=== PATIENT | male | born 1950 | race Caucasian/White ===

== ENCOUNTER → 2018-09-07 | Outpatient (CLI) | payer OTHER ==
[2018-09-07 14:53] LABS: African American GFR (CKD) >90 (>60 ml/min/1.73 sqM); Blood Urea Nitrogen 7 mg/dL (9-20)
--- NOTE | 2018-09-07 22:20 | CT ---
EXAMINATION TYPE: CT chest w con DATE OF EXAM: 09/07/2018 COMPARISON: 06/26/2014 HISTORY: 67-year-old male left lung mass TECHNIQUE: Contiguous axial scanning of the chest after the administration of 100 mL of Isovue 300. Coronal/sagittal reconstructions performed. CT DLP: 271 mGycm. Automatic exposure control utilized for a dose reduction. FINDINGS: Heart normal size without pericardial effusion. The aorta is normal caliber with conventional arch vessel branching anatomy. No axillary or mediastinal lymphadenopathy. Couple prominent but nonenlarged left hilar lymph nodes measure 9 mm and 8 mm, axial image 24 and 28. New large left upper lobe, lingular mass measuring 5.9 x 5.2 cm extending to just above the pleural m argin. There is partial encasement of the superior segment lingular bronchus. No consolidation or pleural effusion. Moderate size hiatal hernia. Otherwise, visualized upper abdomen shows no gross abnormality. Bones: Mild endplate spondylosis mid to lower thoracic spine. No osseous destructive process. IMPRESSION: 1. As compared to 06/26/2014, there is a new 5.9 x 5.2 cm lingular mass with partial encasement of the superior segment lingular bronchus and extension to just abut the pleural surface. 2. A couple prominent but nonenlarged left hilar lymph nodes measure 9 mm and 8 mm. No mediastinal ly mphadenopathy. 3. Stable moderate-sized hiatal hernia.
== END | disposition home or self-care (01) ==
LOC: RADCTMAIN 14:02
PROVIDERS: ATTEND Physician Assistant Medical
DX: R91.8 Other nonspecific abnormal finding of lung field (principal); K44.9 Diaphragmatic hernia without obstruction or gangrene
CPT/HCPCS: 36415; 71260; 82565; 84520

== ENCOUNTER → 2018-10-23 | Outpatient (CLI) | payer OTHER ==
--- NOTE | 2018-10-25 16:45 | PE ---
Nuclear medicine PET/CT HISTORY: Other nonspecific abnormal finding lung field, initial, lung mass Patient received 9 mCi F-18 FDG intravenously in delayed scanning was performed from the skull base t o the mid thighs. Localization and attenuation correction CT scan was performed. Correlation to prior chest CT dated 09/07/2018 Neck and chest: There is no cervical or supraclavicular adenopathy evident. No mediastinal, axillary, hilar uptake. There is a mass present as described on chest CT in the left upper lobe measuring appr oximate 6.6 cm which extends from the pleural surface laterally towards the left hilum and shows hype rmetabolic uptake, SUV is 8.6. Spiculated margins are present. No pleural or pericardial effusion. There is a large hiatal hernia with partial intrathoracic stomach present. ABDOMEN: No evident adrenal mass or lung mass. No suspicious hypermetabolic uptake. No retroperitonea l adenopathy. Osseous structures show no suspicious hypermetabolic uptake. IMPRESSION: Bronchogenic carcinoma.
== END | disposition home or self-care (01) ==
LOC: RADPETMAIN 12:31
PROVIDERS: ATTEND Internal Medicine Critical Care Medicine
DX: C34.90 Malignant neoplasm of unspecified part of unspecified bronchus or lung (principal)
CPT/HCPCS: 78815; A9552

== ENCOUNTER 2018-10-28 10:45 | Day surgery (SDC) | payer OTHER ==
[2018-10-26 15:50] VITALS: BMI 19.8
[~2018-10-28 10:45] MED LIST: ALBUTEROL NEB (CONC) 2.5 MG/0.5 ML INHALATION ONE; ATROPINE SULFATE 0.4 MG/ML 1 ML VIAL IM ONE; LACTATED RINGERS 1,000 ML IV SCH; LIDOCAINE 2% (PF) 20 MG/ML 5 ML VIAL INHALATION ONE; LIDOCAINE VISCOUS 300 MG/15 ML CUP MUCOUS MEM ONE; SODIUM CHLORIDE 0.9% 1,000 ML IV SCH
[2018-10-28 11:16] VITALS: TEMP 97.6
[2018-10-28] MEDS ORDERED: LIDOCAINE 1% 20 ML VIAL (10MG/ML) FOR IV START INTRADERMA ONE (11:25)
[2018-10-28] MEDS ORDERED: KETAMINE 10 MG/ML 20 ML VIAL ONE (12:17)
[2018-10-28] MEDS ORDERED: LIDOCAINE 1% INJ 10MG/ML (20 ML MDV) ONE (12:17)
[2018-10-28] MEDS ORDERED: PROPOFOL 10 MG/ML 20 ML VIAL IV ONE (12:17)
[2018-10-28] MEDS ORDERED: LIDOCAINE 2% INJ 20 MG/ML INTRATRACH ONE (12:35)
--- NOTE | 2018-10-28 13:44 | FL ---
EXAMINATION TYPE: FL bronchoscopy DATE OF EXAM: 10/28/2018 COMPARISON: NONE HISTORY: Left lung mass Fluoroscopy support supplied to the referring clinician. See dictated report from Jeannette cuba secumer gonzales fluoroscopy time, single intraoperative image documents the procedure
[2018-10-28] MEDS ORDERED: ALBUTEROL NEBULIZED 2.5 MG/3 ML INHALATION STA (14:05)
[2018-10-28 14:08] VITALS: BP 115/69; RESP 18
[2018-10-28 14:14] VITALS: PULSE 80
--- NOTE | 2018-10-28 23:49 | PCN ---
PROCEDURE NOTE OPERATORS: 1. Carlitos Basurto MD. 2. Dr. Gan. PREOPERATIVE DIAGNOSIS: Lung cancer. POSTOPERATIVE DIAGNOSIS: Lung cancer. PROCEDURE: Bronchial airway examination, therapeutic lavage, BAL, brushes in left upper lobe. PROCEDURE DESCRIPTION: PANAMA HAT SMEARER provided general anesthesia, unconscious sedation. There was informed consent. There was universal timeout. The patient's procedure took place in room #1. Fluoroscopy was used for guidance and for localization. After the patient was adequately sedated and being fully monitored, the bronchoscope was inserted through the right nostril. It passed through the right nasopharynx into the oropharynx and then to the hypopharynx. The hypopharyngeal structures appeared relatively normal, including anterior commissure, true cords, false cords, arytenoids, piriform sinuses, right and left valleculae and epiglottis. After topicalization, the bronchoscope was pushed through the glottic opening into the trachea. The trachea appeared normal. We went right down to the tracheal tong, which appeared normal. We went down to the left side to evaluate the left side. There was no distinct endobronchial tumor or mass, but the mucosa, particularly in the lingular segment of the left upper lobe, appeared abnormal. We did brushes in this area. We also washed this area. Because of bleeding and oozing, we never did do biopsies. The patient tolerated the procedure well. We made sure the patient stopped bleeding before the bronchoscope was withdrawn. There were no immediate complications. No x-rays necessary. We believe we had pretty good localization in the lingula of the left upper lobe. I will talk to the patient's family. MMODL / IJN: [id number] /
== END 2018-10-28 14:58 | disposition home or self-care (01) ==
LOC: ORWHC2ENDO 10:45 → EEVIPCON 12:00 → ORWHC2ENDO 14:58
PROVIDERS: ATTEND Internal Medicine Critical Care Medicine
DX: R91.8 Other nonspecific abnormal finding of lung field (principal); J44.9 Chronic obstructive pulmonary disease, unspecified; B18.2 Chronic viral hepatitis C; E78.5 Hyperlipidemia, unspecified; K21.9 Gastro-esophageal reflux disease without esophagitis; F43.10 Post-traumatic stress disorder, unspecified; R56.9 Unspecified convulsions; F39 Unspecified mood [affective] disorder; Z79.899 Other long term (current) drug therapy; F17.210 Nicotine dependence, cigarettes, uncomplicated
CPT/HCPCS: 94640 ×2; 88104; 88108; 88305; 31623; 31624; J2001 ×3; J0461; J2704

== ENCOUNTER 2018-11-03 10:15 | Day surgery (SDC) | payer OTHER ==
[2018-11-01 11:12] VITALS: BMI 19.4
[~2018-11-03 10:15] MED LIST changes: +DEXAMETHASONE SOD PHOSPHATE 10 MG/ML 1 ML VIAL IV ONE; +LIDOCAINE 1% 20 ML VIAL (10MG/ML) FOR IV START INTRADERMA PRN; +MIDAZOLAM 2 MG/2 ML VIAL IV PRN; +ONDANSETRON 4 MG/2 ML VIAL IVP ONE; +Pre Op ABX Message 1 EACH MISC MISCELLANE ONE; +fentaNYL (PF) 50 MCG/ML 2 ML AMP IV PRN
[2018-11-03] MEDS ORDERED: LIDOCAINE 1% INJ 10MG/ML (20 ML MDV) ONE (12:50)
[2018-11-03] MEDS ORDERED: fentaNYL (PF) 50 MCG/ML 2 ML AMP ONE (12:50)
[2018-11-03] MEDS ORDERED: SUCCINYLCHOLINE CHLORIDE 100 MG/5 ML SYR IV ONE (12:50)
[2018-11-03] MEDS ORDERED: MIDAZOLAM 2 MG/2 ML VIAL ONE (12:50)
[2018-11-03] MEDS ORDERED: PHENYLEPHRINE-0.9% NACL SYG 1 MG/10 ML SYRINGE ONE (12:50)
[2018-11-03] MEDS ORDERED: PROPOFOL 10 MG/ML 20 ML VIAL IV ONE (12:50)
--- NOTE | 2018-11-03 14:17 | CT ---
EXAMINATION TYPE: CT Chest wo con Veran Protocol DATE OF EXAM: 11/03/2018 COMPARISON: None HISTORY: 68-year-old male Lung mass-veran protocol TECHNIQUE: Contiguous axial scanning of the chest without IV contrast. Imaging in both inspiration an d expiration for navigational purposes. Coronal and sagittal reconstructions performed. CT DLP: 592.8 mGycm Automated exposure control for dose reduction was used. FINDINGS: Heart normal size without pericardial effusion. Aorta normal caliber convention arch vessel branching anatomy. Lingular mass with some faint punctate calcifications within measures up to 7.0 cm extending to the p leural surface. Some mild tree-in-bud opacities within the inferior lingula just adjacent could represent mild pneumo nitis. No pleural effusion. Moderate size hiatal hernia. Bones: Mild anterior endplate spondylosis. No rib erosions. Moderate degenerative disc disease midtho racic spine. IMPRESSION: LARGE 7.0 CM LEFT UPPER LOBE/LINGULAR MASS. SOME ADJACENT MILD TREE-IN-BUD OPACITIES INFERIOR LINGULA COULD REPRESENT A MILD PNEUMONITIS. MODERATE-SIZED HIATAL HERNIA. IMAGING FOR NAVIGATIONAL PURPOSES.
--- NOTE | 2018-11-03 14:25 | PCN ---
PROCEDURE NOTE PROCEDURE: Navigational bronchoscopy. PREOPERATIVE DIAGNOSIS: Mass, left upper lobe, rule out cancer. POSTOP DIAGNOSIS: Mass, left upper lobe, rule out cancer. SENIOR FINANCIAL REPORTING ANALYST: Dr. Basurto and Dr. Gan. PROCEDURE DESCRIPTION: Patient's procedure was done under general anesthesia in the operating room #5. The anesthesiologist was , the nurse screw down was Natalie Harrison CRNA. There was informed consent and universal timeout. I did speak to the family members before the procedure. After patient was adequately sedated and under general anesthesia, the bronchoscope was inserted through the bronchoscope adapter connected to the endotracheal tube. Under the electromagnetic guidance, there were multiple procedures performed including brushes, multiple transbronchial biopsies, needle biopsies and washes of the lesion in the left upper lobe. We had good localization. We had pathology in the room. looked at the sample and thought that we did have a diagnosis. The patient tolerated the procedure well. There was no significant bleeding. There was no dominant mass in the airways. The patient will be recovered. No additional recommendations are made. I will make sure I speak to the family members after the procedure. MMODL / IJN: [id number] / MTDD
[2018-11-03 14:27] VITALS: TEMP 97
[2018-11-03 14:53] VITALS: RESP 18
--- NOTE | 2018-11-03 15:04 | XR ---
EXAMINATION TYPE: XR chest 1V portable DATE OF EXAM: 11/03/2018 COMPARISON: 06/30/2014 HISTORY: Post bronchial navigation TECHNIQUE: Single frontal view of the chest is obtained. FINDINGS: Large mass in the left upper lobe. No sizable pneumothorax. Suggestion of a hiatal hernia. Underlying COPD suspected. Diffuse osteopenia. No pleural effusion. Heart size stable. IMPRESSION: Large left upper lobe mass with no evidence of pneumothorax
[2018-11-03 15:41] VITALS: BP 125/79
[2018-11-03 15:54] VITALS: PULSE 81
== END 2018-11-03 16:13 | disposition home or self-care (01) ==
LOC: ORWHC2ENDO 10:15
PROVIDERS: ATTEND Internal Medicine Critical Care Medicine
DX: C34.12 Malignant neoplasm of upper lobe, left bronchus or lung (principal); J44.9 Chronic obstructive pulmonary disease, unspecified; B18.2 Chronic viral hepatitis C; E78.5 Hyperlipidemia, unspecified; A60.00 Herpesviral infection of urogenital system, unspecified; K21.9 Gastro-esophageal reflux disease without esophagitis; F43.10 Post-traumatic stress disorder, unspecified; Z82.49 Family history of ischemic heart disease and other diseases of the circulatory system; F17.210 Nicotine dependence, cigarettes, uncomplicated; Z79.1 Long term (current) use of non-steroidal anti-inflammatories (NSAID); Z79.899 Other long term (current) drug therapy
CPT/HCPCS: 88104; 88108; 88305; 88173; 88342; 88341; 71045; 71250; 31628; 31627; J2250; J1100; J2405; J2001; J3010; J2370; J0330; J2704; 31623; 31624; 31633

== ENCOUNTER → 2018-11-23 | Outpatient (CLI) | payer OTHER | END | disposition home or self-care (01) | LOC: CPPFTMAIN 10:17 | PROVIDERS: ATTEND Internal Medicine Critical Care Medicine | DX: J44.9 Chronic obstructive pulmonary disease, unspecified (principal); I99.8 Other disorder of circulatory system | CPT/HCPCS: 94060; 94726; 94729 ==

== ENCOUNTER → 2018-11-29 | Outpatient (CLI) | payer OTHER ==
[2018-11-29 07:33] LABS: African American GFR (CKD) >90 (>60 ml/min/1.73 sqM); Blood Urea Nitrogen 5 mg/dL (9-20)
--- NOTE | 2018-11-29 08:27 | CT ---
EXAMINATION TYPE: CT brain wo/w con DATE OF EXAM: 11/29/2018 COMPARISON: None INDICATION: Malig. Loi Upper Lobe, Lt Bronchus DLP: 2216.8 mGycm, Automated exposure control for dose reduction was used. CONTRAST: None CT of the brain is performed utilizing 3 mm thick sections through the posterior fossa and 3 mm thick sections through the remaining calvarium. Study is performed within 24 hours of arrival to the hosp [facility]. No abnormal hyperdensity is present to suggest an acute intracranial hemorrhage. No mass lesion is evident. No acute infarcts are evident. There is some mild periventricular white matter hypodensity most likel y on the basis of chronic white matter ischemic changes. Ventricles and sulci are appropriate for the patient age. Paranasal sinuses and mastoid air cells within the [id number] are clear. No abnormal enhancement is evident following contrast administration calvarium appears normal. No siomara picious lytic or sclerotic lesions are evident. IMPRESSIONS: 1. Mild chronic appearing periventricular white matter ischemic changes. 2. No suspicious changes for metastatic disease.
== END | disposition home or self-care (01) ==
LOC: RADCTMAIN 06:35
PROVIDERS: ATTEND Radiology Radiation Oncology
DX: I67.82 Cerebral ischemia (principal); C34.12 Malignant neoplasm of upper lobe, left bronchus or lung
CPT/HCPCS: 82565; 84520; 70470; 36415; Q9967

== ENCOUNTER → 2019-03-07 | Outpatient (CLI) | payer OTHER ==
[2019-03-07 11:10] LABS: African American GFR (CKD) >90 (>60 ml/min/1.73 sqM); Blood Urea Nitrogen 15 mg/dL (9-20); Non-African American GFR(CKD) >90 (>60 ml/min/1.73 sqM)
--- NOTE | 2019-03-07 11:40 | CT ---
EXAMINATION TYPE: CT chest w con DATE OF EXAM: 03/07/2019 COMPARISON: Chest CT September 07, 2018 and PET/CT October 23, 2018. HISTORY: Lung CA progress study. History of chemotherapy and radiation treatment. CT DLP: 190.4 mGycm. Automated Exposure Control for Dose Reduction was Utilized. TECHNIQUE: CT scan of the thorax is performed following with IV Contrast, patient injected with 100 mL of Isovue 300. FINDINGS: LUNGS: Redemonstration of inferior left upper lobe mass or neoplasm measuring 5.3 x 4.4 cm axial imag e 26 not significantly changed from last 2 studies. Some linear scarring anterior inferior to this is now present. No new nodules or masses. No pleural effusion or pneumothorax. MEDIASTINUM: There are no new greater than 1 cm hilar or mediastinal lymph nodes. No cardiomegaly o r pericardial effusion is seen. OTHER: Moderate size hiatal hernia is redemonstrated. Poorly distended stomach and hiatal hernia radha lar to prior makes evaluation for focal suboptimal cannot exclude wall thickening. IMPRESSION: 1. Stable left sided mass or neoplasm. No new nodules or adenopathy. Overall stable findings.
== END ==
LOC: RADCTMAIN 10:31
PROVIDERS: ATTEND Internal Medicine Hematology & Oncology
DX: C34.12 Malignant neoplasm of upper lobe, left bronchus or lung (principal)
CPT/HCPCS: 82565; 84520; 71260; 36415; Q9967

== ENCOUNTER → 2019-12-12 | Outpatient (CLI) | payer OTHER ==
[2019-12-12 14:06] LABS: African American GFR (CKD) >90 (>60 ml/min/1.73 sqM); Blood Urea Nitrogen 12 mg/dL (9-20); Non-African American GFR(CKD) >90 (>60 ml/min/1.73 sqM)
--- NOTE | 2019-12-12 15:16 | CT ---
EXAMINATION TYPE: CT ChestAbdPelvis w con DATE OF EXAM: 12/12/2019 COMPARISON: 03/07/2019 HISTORY: Lung CA CT DLP: 543.5 mGycm CONTRAST: CT scan of the chest, abdomen and pelvis is performed with Oral Contrast and with IV Contrast, patien t injected with 100 mL of Isovue 300. CT Chest: LUNGS: There is a cavitary mass left upper lobe which measures 4.7 x 3.6 cm and is smaller in size wh en compared to the prior study entering 5.3 x 4.4 cm area of cavitation is new in the interval. No ad ditional pulmonary nodules or masses are identified. MEDIASTINUM: Thoracic aorta is of normal caliber. The heart is not enlarged. No evidence for media stinal mass or adenopathy. Moderate size fixed hiatal hernia noted. HILAR STRUCTURES: No evidence for mass. No hilar adenopathy is appreciated. OTHER: No significant abnormality. CONTRAST CT ABDOMEN AND PELVIS FINDINGS: LIVER/GB: No calcified gallstones. Hypoattenuating anterior segment right hepatic lobe lesion measu ring 7.4 mm unchanged from prior study. No additional hepatic lesions are seen. Biliary tree is of no rmal caliber. PANCREAS: No inflammation. No distinct mass. SPLEEN: No splenic enlargement. No lesion seen. ADRENALS: No nodule. No thickening. KIDNEYS/BLADDER: No hydronephrosis. No nephrolithiasis. No distinct renal mass. BOWEL: Normal appendix. Normal bowel caliber. No inflammation. GENITAL ORGANS: No gross abnormality. LYMPH NODES: No greater than 1cm abdominal or pelvic lymph nodes are appreciated. AORTA: No significant abnormality. OSSEOUS STRUCTURES: No significant abnormality is seen. OTHER: Note is made of a large right-sided hydrocele. IMPRESSION: 1. Left upper lobe mass persists although is smaller in size. There is new cavitation within the mass noted. No new masses identified. 2. Stable probable hepatic cysts.
== END | disposition home or self-care (01) ==
LOC: RADCTMAIN 13:09
PROVIDERS: ATTEND Internal Medicine Hematology & Oncology
DX: C34.12 Malignant neoplasm of upper lobe, left bronchus or lung (principal)
CPT/HCPCS: 82565; 84520; 71260; 74177; 36415; Q9967

== ENCOUNTER → 2020-03-14 | Outpatient (CLI) | payer OTHER ==
[2020-03-14 11:15] LABS: African American GFR (CKD) >90 (>60 ml/min/1.73 sqM); Blood Urea Nitrogen 16 mg/dL (9-20); Non-African American GFR(CKD) 86 (>60 ml/min/1.73 sqM)
--- NOTE | 2020-03-14 20:39 | CT ---
EXAMINATION TYPE: CT ChestAbdPelvis w con DATE OF EXAM: 03/14/2020 INDICATION: Lung cancer COMPARISON: 12/12/2019 CT DLP: 654.70 mGycm CONTRAST: Performed with Oral Contrast and with IV Contrast, patient injected with 100 ml mL of Isovue 300. TECHNIQUE: Axial images at 5 mm thick sections. Reconstructed images in the coronal plane. Delayed images through the kidneys. FINDINGS: CT CHEST: Portion of the thyroid visualized is normal. There is a cavitary lesion within the mid lingula measuring 3.5 x 3.5 cm. Previous measurement 4.7 x 3.6 cm. No enlarged mediastinal or hilar adenopathy is evident. The ascending aorta diameter at the level of the main pulmonary artery is 3.4 cm. The main pulmonary artery diameter at the bifurcation is 2.8 cm. There is a large hiatal hernia present. CT ABDOMEN: Liver: There is a 0.7 cm hypodensity within the superior right lobe liver may be a small cyst present previously. Spleen: Normal Pancreas: Normal Adrenal glands: The adrenal glands are normal. Gallbladder: Normal Kidneys: No masses are evident. No hydronephrosis is present. No cysts are present. Delayed images were obtained through the kidneys, which remain unremarkable. Aorta: Vascular calcification is within the aorta. Inferior vena cava: Normal. CT PELVIS: Loops of bowel within the abdomen and pelvis are normal. There are loops of bowel which are incom pletely distended or lack oral contrast limiting their evaluation. Oral contrast gets to the ascendin g colon. Appendix: Normal as visualized. Urinary bladder: Normal. Genitourinary structures: Prostate is unremarkable. Large right hydrocele appears to be present. Osseous structures: No suspicious lytic or sclerotic lesions. IMPRESSIONS: 1. Slight diminished size of the cavitary lesion within the lingula. 2. Large hiatal hernia. 3. Right-sided hydrocele
== END | disposition home or self-care (01) ==
LOC: RADCTMAIN 09:52
PROVIDERS: ATTEND Internal Medicine Hematology & Oncology
DX: Z03.89 Encounter for observation for other suspected diseases and conditions ruled out (principal); C34.12 Malignant neoplasm of upper lobe, left bronchus or lung; K44.9 Diaphragmatic hernia without obstruction or gangrene; N43.3 Hydrocele, unspecified; R91.1 Solitary pulmonary nodule
CPT/HCPCS: 82565; 84520; 71260; 74177; 36415; Q9967

== ENCOUNTER → 2020-07-13 | Outpatient (CLI) | payer OTHER ==
[2020-07-13 12:50] LABS: African American GFR (CKD) >90 (>60 ml/min/1.73 sqM); Blood Urea Nitrogen 16 mg/dL (9-20); Non-African American GFR(CKD) >90 (>60 ml/min/1.73 sqM)
--- NOTE | 2020-07-13 13:59 | CT ---
EXAMINATION TYPE: CT chest w con DATE OF EXAM: 07/13/2020 COMPARISON: 03/14/2020 HISTORY: Lung Cancer CT DLP: 301 mGycm Automated exposure control for dose reduction was used. CONTRAST: Performed with IV Contrast, patient injected with 100 ml mL of Isovue 300. Images obtained from the thoracic inlet to the diaphragm with IV contrast. There is a 4 x 3 cm cavitating mass in the left upper lobe extending from the chest wall to the left pulmonary hilum. Central cavity measures 1.8 cm. There is minimal adjacent spiculation the other lung love are clear. There is moderate size hiatal hernia. There is no pleural effusion. Heart size is normal. There is no sign of mediastinal adenopathy. Thoracic aorta is intact. There is no aneurysm or dissection. Thoracic spine is intact. There is no compression fracture. The ribs are intact. Shoulder joints are intact. There is no adrenal mass. Upper abdominal soft tissu es visualized appear intact. IMPRESSION: Cavitating mass in the left upper lobe appears unchanged compared to old CT scan and consistent with necrotic tumor. No increasing pulmonary density compared to old exam.
== END | disposition home or self-care (01) ==
LOC: RADCTMAIN 11:44
PROVIDERS: ATTEND Internal Medicine Hematology & Oncology
DX: C34.90 Malignant neoplasm of unspecified part of unspecified bronchus or lung (principal); R91.8 Other nonspecific abnormal finding of lung field
CPT/HCPCS: 82565; 84520; 71260; 36415; Q9967

== ENCOUNTER → 2020-11-29 | Outpatient (CLI) | payer OTHER ==
[2020-11-29 17:21] LABS: African American GFR (CKD) >90 (>60 ml/min/1.73 sqM); Blood Urea Nitrogen 15 mg/dL (9-20); Non-African American GFR(CKD) >90 (>60 ml/min/1.73 sqM)
--- NOTE | 2020-11-30 07:38 | CT ---
EXAMINATION TYPE: CT chest w con DATE OF EXAM: 11/29/2020 COMPARISON: Chest CT July 13, [address] PET CT October 23, 2018 HISTORY: Lung ca left-sided originally diagnosed October 2018 CT DLP: 166.50 mGycm. Automated Exposure Control for Dose Reduction was Utilized. TECHNIQUE: CT scan of the thorax is performed following with IV Contrast, patient injected with 125 mL of Isovue 300. FINDINGS: LUNGS: Persistent cavitary lesion left mid lung extending from the superior hilum measures approximat yumi 4.6 x 2.7 cm axial image 24 not significantly enlarged from last 2 studies but shows some new or more prominent internal fluid with diminished internal air. There is continued slight left superior hilar retraction. Stable mild left basilar linear scarring. No new nodules or masses. There is no ple ural effusion or pneumothorax seen. MEDIASTINUM: There are no new greater than 1 cm hilar or mediastinal lymph nodes. No cardiomegaly o r pericardial effusion is seen. Moderate to large size hiatal hernia redemonstrated with new interna l debris. Mild coronary artery calcification redemonstrated. OTHER: Excretion in the kidneys is incidentally seen. IMPRESSION: Stable size of known left superhilar mass or cavitary neoplasm. No new nodules or adenopa thy noted.
== END | disposition home or self-care (01) ==
LOC: RADCTMAIN 16:50
PROVIDERS: ATTEND Internal Medicine Hematology & Oncology
DX: C34.92 Malignant neoplasm of unspecified part of left bronchus or lung (principal); J98.4 Other disorders of lung
CPT/HCPCS: 82565; 84520; 71260; 36415; Q9967

== ENCOUNTER → 2021-06-17 | Outpatient (CLI) | payer OTHER ==
[2021-06-17 12:34] LABS: African American GFR (CKD) >90 (>60 ml/min/1.73 sqM); Blood Urea Nitrogen 11 mg/dL (9-20); Non-African American GFR(CKD) >90 (>60 ml/min/1.73 sqM)
--- NOTE | 2021-06-17 15:07 | CT ---
EXAMINATION TYPE: CT ChestAbdPelvis w con DATE OF EXAM: 06/17/2021 COMPARISON: CT dated 11/29/2020 and 03/14/2020 HISTORY: Lung cancer. CT DLP: 1066 mGycm Automated exposure control for dose reduction was used. CONTRAST: CT scan of the chest, abdomen and pelvis is performed with Oral Contrast and with IV Contrast, patien t injected with 100 mL of Isovue M300. FINDINGS: LUNGS: Slightly more prominent left upper lobe central lesion inseparable from the left hilum measuri ng 3 x 5.2 cm compared to 2.7 x 4.6 cm previously. More solid component is appreciated with the previ ously seen cavitation is not appreciated today. Apparent obstruction of the lingular bronchus, apprec iated previously. Loss of volume of the left upper lobe with cardiomediastinal shift to the left side . No other definite new or progressive lung lesion. Patent trachea and main bronchi. No pleural effus ion. MEDIASTINUM: There are no greater than 1 cm hilar or mediastinal lymph nodes. No pericardial effusi on is seen. Unchanged heart and great mediastinal vessels. OTHER: Osteopenia. No gross aggressive bone lesion. LIVER/GB: Stable right hepatic lobe cyst, otherwise unremarkable liver and gallbladder. PANCREAS: No significant abnormality is seen. SPLEEN: No significant abnormality is seen. ADRENALS: Stable 7 mm right adrenal nodule. Unremarkable left adrenal. KIDNEYS: Unremarkable kidneys. Markedly distended urinary bladder. BOWEL: Hiatal hernia containing at least half of the stomach. Unremarkable remainder of the stomach and duodenum. Suboptimal assessment of the small and large bowel due to paucity of intra-abdominal fa t. No evidence of bowel obstruction. Fecal loading of the colon. A small colonic lesion cannot be exc luded by this CT scan. REPRODUCTIVE ORGANS: Prostatic concretion. LYMPH NODES: No greater than 1 cm abdominal or pelvic lymph nodes are appreciated. OSSEOUS STRUCTURES: Osteopenia. Marked degenerative changes at L5-S1 level. Grade 1 anterolisthesis o f L4 over L5. No gross aggressive bone lesion. OTHER: Scattered arterial atherosclerotic calcifications. No sizable ascites. Large right sided scrot al hydrocele. IMPRESSION: 1. Slightly larger known left upper lobe lesion which could be related to postradiation changes howev er progressive underlying residual lung cancer cannot be excluded. Further PET scan assessment can be considered. 2. Stable tiny right adrenal nodule. Otherwise no evidence of metastatic disease seen in the abdomen or the pelvis. Other incidental findings as detailed above.
== END | disposition home or self-care (01) ==
LOC: RADCTMAIN 11:22
PROVIDERS: ATTEND Internal Medicine Hematology & Oncology
DX: C34.12 Malignant neoplasm of upper lobe, left bronchus or lung (principal); E27.8 Other specified disorders of adrenal gland
CPT/HCPCS: 82565; 84520; 71260; 74177; 36415; Q9967

== ENCOUNTER 2021-07-30 18:23 | Inpatient (IN) | payer OTHER, MEDICARE ==
[2021-07-30] MEDS ORDERED: SODIUM CHLORIDE 0.9% 1,000 ML IV STA (20:17)
--- NOTE | 2021-07-30 20:32 | ED ---
Male Urogenital HPI - General Chief complaint: Urogenital Stated complaint: Urogenital Time Seen by Provider: 07/30/21 20:08 Source: patient, RN notes reviewed Mode of arrival: wheelchair Limitations: no limitations - History of Present Illness Initial comments: This is a pleasant 70-year-old male who presents to the emergency department. Patient does have some level of baseline dementia. Patient has history of lung cancer. Apparently for the past few weeks the patient has had worsening scrotal swelling and now has discomfort to the area. Patient states this is causing discomfort when he goes to walk. Patient states that he fell several times in the barn today. This was not witnessed. However patient's believes it is due to the scrotal swelling. Patient is complaining of bilateral knee pain as well. No chest pain or shortness of breath. Patient denies any head or neck injury although the patient is not a reliable historian. No blood thinners. No hematuria. No penile discharge. No skin rashes or lesions. Patient has been eating and drinking normally. No changes in bowel movements. No headache, no fever or chills, no changes in vision or hearing, no sore throat or difficulty with speech, no neck pain, no chest pain or shortness of breath, no abdominal pain, no nausea or vomiting, no changes in urination, no numbness or tingling MD Complaint: testicle swelling - Related Data Home Medications Medication Instructions Recorded Confirmed diphenhydrAMINE [Benadryl] 25 mg PO BID 06/30/14 07/30/21 Benztropine Mesylate [Cogentin] 1 mg PO DAILY 10/26/18 07/30/21 Finasteride [Proscar] 5 mg PO DAILY 10/26/18 07/30/21 Tamsulosin [Flomax] 0.4 mg PO DAILY 10/26/18 07/30/21 risperiDONE [RisperDAL] 1 mg PO BID 10/26/18 07/30/21 Diazepam [Valium] 5 mg PO BID 07/30/21 07/30/21 Fluticasone/Salmeterol [Advair 1 puff INHALATION RT-BID 07/30/21 07/30/21 250-50 Diskus] Omeprazole 40 mg PO DAILY 07/30/21 07/30/21 Allergies Allergy/AdvReac Type Severity Reaction Status Date / Time No Known Allergies Allergy Verified 07/30/21 23:36 Review of Systems ROS Statement: Those systems with pertinent positive or pertinent negative responses have been documented in the HPI. ROS Other: All systems not noted in ROS Statement are negative. 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 History of Any Multi-Drug Resistant Organisms: None Reported Past Surgical History: Adenoidectomy, Tonsillectomy Additional Past Surgical History / Comment(s): hepatitis C Past Anesthesia/Blood Transfusion Reactions: No Reported Reaction Past Psychological History: Schizophrenia Smoking Status: Never smoker Past Alcohol Use History: None Reported Past Drug Use History: Marijuana - Past Family History Father Family Medical History: Unable to Obtain Additional Family Medical History / Comment(s): PT WAS ADOPTED Mother Family Medical History: Unable to Obtain Additional Family Medical History / Comment(s): PT WAS ADOPTED, General Exam - General Exam Comments Initial Comments: Vital signs stable, patient afebrile. Patient does not appear to be ill or toxic. Limitations: no limitations General appearance: alert, in no apparent distress Head exam: Present: atraumatic, normocephalic, normal inspection Eye exam: Present: normal appearance, PERRL, EOMI. Absent: scleral icterus, conjunctival injection, periorbital swelling ENT exam: Present: normal exam, mucous membranes moist Neck exam: Present: normal inspection. Absent: tenderness, meningismus, lymphadenopathy Respiratory exam: Present: normal lung sounds bilaterally. Absent: respiratory distress, wheezes, rales, rhonchi, stridor Cardiovascular Exam: Present: regular rate, normal rhythm, normal heart sounds. Absent: systolic murmur, diastolic murmur, rubs, gallop, clicks GI/Abdominal exam: Present: soft, normal bowel sounds. Absent: distended, tenderness, guarding, rebound, rigid exam: Present: scrotal swelling, circumcision, other (There is no testicular tenderness. Patient does have enlarged scrotum with no evidence of overlying erythema or rash. Appears to be consistent with a large hydrocele. No evidence of inguinal hernia or abdominal wall hernia.). Absent: urethral discharge Extremities exam: Present: normal inspection, full ROM (Full range of motion bilateral knees with increased pain.), tenderness (Soft tissue tenderness to both knees. No evidence of bony point tenderness. No crepitus. No break in skin integrity. No erythema. No notable effusion.), normal capillary refill. Absent: pedal edema, joint swelling, calf tenderness Back exam: Present: normal inspection, full ROM. Absent: tenderness, CVA tenderness (R), CVA tenderness (L), muscle spasm, paraspinal tenderness, vertebral tenderness Neurological exam: Present: alert, oriented X3, CN II-XII intact Psychiatric exam: Present: normal affect, normal mood Skin exam: Present: warm, dry, intact, normal color. Absent: rash Course Vital Signs 07/30/21 07/30/21 07/30/21 20:00 21:04 23:00 Temperature 98.2 F Pulse Rate 88 81 81 Respiratory 18 16 16 Rate Blood Pressure 136/87 123/72 128/77 O2 Sat by Pulse 96 94 L 95 Oximetry - Reevaluation(s) Reevaluation #1: 07/30/21 21:50 Patient noted to have hyponatremia with a sodium of 125. Calcium also low at 8.2. Patient will require admission for electrolyte disturbance Reevaluation #2: 07/30/21 21:52 Patient no distress sitting in bed. Computed tomography scan did not show any acute findings. Medical Decision Making - Medical Decision Making This discussed in detail with the hospitalist physician, Dr. Sun, he insets admission of the patient. Admitted for hyponatremia. Chief Clerk Shelter Dr. Guzman - Lab Data Result diagrams: 07/31/21 06:44 07/31/21 13:03 Lab Results 07/30/21 07/30/21 07/30/21 Range/Units 20:30 20:30 20:30 WBC 12.1 H (3.8-10.6) k/uL RBC 3.82 L (4.30-5.90) m/uL Hgb 11.4 L (13.0-17.5) gm/dL Hct 34.8 L (39.0-53.0) % MCV 91.0 (80.0-100.0) fL MCH 29.9 (25.0-35.0) pg MCHC 32.8 (31.0-37.0) g/dL RDW 14.2 (11.5-15.5) % Plt Count 256 (150-450) k/uL MPV 6.2 Neutrophils % 81 % Lymphocytes % 8 % Monocytes % 8 % Eosinophils % 1 % Basophils % 0 % Neutrophils # 9.8 H (1.3-7.7) k/uL Lymphocytes # 1.0 (1.0-4.8) k/uL Monocytes # 1.0 (0-1.0) k/uL Eosinophils # 0.1 (0-0.7) k/uL Basophils # 0.0 (0-0.2) k/uL Sodium 125 L (137-145) mmol/L Potassium 3.8 (3.5-5.1) mmol/L Chloride 90 L (98-107) mmol/L Carbon Dioxide 26 (22-30) mmol/L Anion Gap 9 mmol/L BUN 8 L (9-20) mg/dL Creatinine 0.63 L (0.66-1.25) mg/dL Est GFR (CKD-EPI)AfAm >90 (>60 ml/min/1.73 sqM) Est GFR (CKD-EPI)NonAf >90 (>60 ml/min/1.73 sqM) Glucose 98 (74-99) mg/dL Osmolality (280-301) mosm/kg Calcium 8.2 L (8.4-10.2) mg/dL Magnesium 2.0 (1.6-2.3) mg/dL Total Bilirubin 0.7 (0.2-1.3) mg/dL AST 84 H (17-59) U/L ALT 32 (4-49) U/L Alkaline Phosphatase 57 (38-126) U/L Troponin I 0.015 (0.000-0.034) ng/mL Total Protein 6.7 (6.3-8.2) g/dL Albumin 3.5 (3.5-5.0) g/dL TSH 2.660 (0.465-4.680) mIU/L Urine Color Urine Appearance (Clear) Urine pH (5.0-8.0) Ur Specific [place] (1.001-1.035) Urine Protein (Negative) Urine Glucose (UA) (Negative) Urine Ketones (Negative) Urine Blood (Negative) Urine Nitrite (Negative) Urine Bilirubin (Negative) Urine Urobilinogen (<2.0) mg/dL Ur Leukocyte Esterase (Negative) Urine RBC (0-5) /hpf Urine WBC (0-5) /hpf Urine Mucus (None) /hpf Urine Osmolality (50-1400) mosm/kg Ur Random Creatinine mg/dL Ur Random Sodium (40-220) mmol/L 07/30/21 07/30/21 07/30/21 Range/Units 20:30 21:54 21:54 WBC (3.8-10.6) k/uL RBC (4.30-5.90) m/uL Hgb (13.0-17.5) gm/dL Hct (39.0-53.0) % MCV (80.0-100.0) fL MCH (25.0-35.0) pg MCHC (31.0-37.0) g/dL RDW (11.5-15.5) % Plt Count (150-450) k/uL MPV Neutrophils % % Lymphocytes % % Monocytes % % Eosinophils % % Basophils % % Neutrophils # (1.3-7.7) k/uL Lymphocytes # (1.0-4.8) k/uL Monocytes # (0-1.0) k/uL Eosinophils # (0-0.7) k/uL Basophils # (0-0.2) k/uL Sodium (137-145) mmol/L Potassium (3.5-5.1) mmol/L Chloride (98-107) mmol/L Carbon Dioxide (22-30) mmol/L Anion Gap mmol/L BUN (9-20) mg/dL Creatinine (0.66-1.25) mg/dL Est GFR (CKD-EPI)AfAm (>60 ml/min/1.73 sqM) Est GFR (CKD-EPI)NonAf (>60 ml/min/1.73 sqM) Glucose (74-99) mg/dL Osmolality 257 L (280-301) mosm/kg Calcium (8.4-10.2) mg/dL Magnesium (1.6-2.3) mg/dL Total Bilirubin (0.2-1.3) mg/dL AST (17-59) U/L ALT (4-49) U/L Alkaline Phosphatase (38-126) U/L Troponin I (0.000-0.034) ng/mL Total Protein (6.3-8.2) g/dL Albumin (3.5-5.0) g/dL TSH (0.465-4.680) mIU/L Urine Color Yellow Urine Appearance Clear (Clear) Urine pH 6.5 (5.0-8.0) Ur Specific [place] 1.016 (1.001-1.035) Urine Protein 1+ H (Negative) Urine Glucose (UA) Negative (Negative) Urine Ketones Negative (Negative) Urine Blood Trace H (Negative) Urine Nitrite Negative (Negative) Urine Bilirubin Negative (Negative) Urine Urobilinogen 2.0 (<2.0) mg/dL Ur Leukocyte Esterase Negative (Negative) Urine RBC 3 (0-5) /hpf Urine WBC 1 (0-5) /hpf Urine Mucus Rare H (None) /hpf Urine Osmolality 511 (50-1400) mosm/kg Ur Random Creatinine 94.3 mg/dL Ur Random Sodium (40-220) mmol/L 07/30/21 Range/Units 21:54 WBC (3.8-10.6) k/uL RBC (4.30-5.90) m/uL Hgb (13.0-17.5) gm/dL Hct (39.0-53.0) % MCV (80.0-100.0) fL MCH (25.0-35.0) pg MCHC (31.0-37.0) g/dL RDW (11.5-15.5) % Plt Count (150-450) k/uL MPV Neutrophils % % Lymphocytes % % Monocytes % % Eosinophils % % Basophils % % Neutrophils # (1.3-7.7) k/uL Lymphocytes # (1.0-4.8) k/uL Monocytes # (0-1.0) k/uL Eosinophils # (0-0.7) k/uL Basophils # (0-0.2) k/uL Sodium (137-145) mmol/L Potassium (3.5-5.1) mmol/L Chloride (98-107) mmol/L Carbon Dioxide (22-30) mmol/L Anion Gap mmol/L BUN (9-20) mg/dL Creatinine (0.66-1.25) mg/dL Est GFR (CKD-EPI)AfAm (>60 ml/min/1.73 sqM) Est GFR (CKD-EPI)NonAf (>60 ml/min/1.73 sqM) Glucose (74-99) mg/dL Osmolality (280-301) mosm/kg Calcium (8.4-10.2) mg/dL Magnesium (1.6-2.3) mg/dL Total Bilirubin (0.2-1.3) mg/dL AST (17-59) U/L ALT (4-49) U/L Alkaline Phosphatase (38-126) U/L Troponin I (0.000-0.034) ng/mL Total Protein (6.3-8.2) g/dL Albumin (3.5-5.0) g/dL TSH (0.465-4.680) mIU/L Urine Color Urine Appearance (Clear) Urine pH (5.0-8.0) Ur Specific [place] (1.001-1.035) Urine Protein (Negative) Urine Glucose (UA) (Negative) Urine Ketones (Negative) Urine Blood (Negative) Urine Nitrite (Negative) Urine Bilirubin (Negative) Urine Urobilinogen (<2.0) mg/dL Ur Leukocyte Esterase (Negative) Urine RBC (0-5) /hpf Urine WBC (0-5) /hpf Urine Mucus (None) /hpf Urine Osmolality (50-1400) mosm/kg Ur Random Creatinine mg/dL Ur Random Sodium 42 (40-220) mmol/L - EKG Data EKG Comments: EKG done at 2107 and read by the ED attending physician reveals sinus rhythm with a rate of 80. Possible right ventricular conduction delay with RSR pattern in V1 and V2. Although this appears to be affected by artifact. Normal intervals otherwise. Normal QRS morphology otherwise. Critical Care Time Critical Care Time: Yes Critical Care Time: Complicated case with the patient who is a poor historian. An extended amount of [id number] time to eliminate the history from the patient. Disposition Clinical Impression: Bilateral hydrocele, Knee contusion, Hyponatremia, Hypocalcemia Narrative: Bilateral knee contusion Disposition: ADMITTED IP TO THIS HOSP Is patient prescribed a controlled substance at d/c from ED?: No Time of Disposition: 21:51 Decision to Admit Reason: Admit from EC Decision Time: 21:51
[2021-07-30 20:43] LABS: Basophils % (A) 0 %; Eosinophils # (A) 0.1 k/uL (0-0.7); Eosinophils % (A) 1 %; HCT 34.8 % (39.0-53.0); HGB 11.4 gm/dL (13.0-17.5); Lymphocytes % (A) 8 %; MCH 29.9 pg (25.0-35.0); MCHC 32.8 g/dL (31.0-37.0); Mean Platelet Volume 6.2; Monocytes % (A) 8 %; Neutrophils # (A) 9.8 k/uL (1.3-7.7); Neutrophils % (A) 81 %; Platelet Count 256 k/uL (150-450); RBC 3.82 m/uL (4.30-5.90); RDW 14.2 % (11.5-15.5); WBC 12.1 k/uL (3.8-10.6)
[2021-07-30 20:52] LABS: ALT 32 U/L (4-49); AST 84 U/L (17-59); African American GFR (CKD) >90 (>60 ml/min/1.73 sqM); Albumin 3.5 g/dL (3.5-5.0); Alkaline Phosphatase 57 U/L (38-126); Anion Gap 9 mmol/L; Blood Urea Nitrogen 8 mg/dL (9-20); Calcium 8.2 mg/dL (8.4-10.2); Carbon Dioxide 26 mmol/L (22-30); Chloride 90 mmol/L (98-107); Glucose 98 mg/dL (74-99); Non-African American GFR(CKD) >90 (>60 ml/min/1.73 sqM); Potassium 3.8 mmol/L (3.5-5.1); Sodium 125 mmol/L (137-145); Total Bilirubin 0.7 mg/dL (0.2-1.3); Total Protein 6.7 g/dL (6.3-8.2)
--- NOTE | 2021-07-30 21:05 | CT ---
EXAMINATION TYPE: CT brain yajaira aburto con DATE OF EXAM: 07/30/2021 COMPARISON: 11/29/2018 CT scan of the head HISTORY: Pt had multiple falls today. CT DLP: 1476 mGycm Automated exposure control for dose reduction was used. Images obtained without contrast. There is mild cerebral cortical atrophy. There is no mass effect or midline shift. No sign of intracr anial hemorrhage. No evidence of cerebral edema. Calvarium is intact. Cervical vertebrae have normal alignment. There is degenerative disc space narrowing at C5-6 and C6-7 with spurring. Facet joints are intact. No focal bone destruction. There is hypertrophic multilevel facet arthropathy. IMPRESSION: Spondylotic changes in the lower cervical spine. No fracture. Cervical atrophy. No acute intracranial abnormality. No change compared to old exam.
--- NOTE | 2021-07-30 21:09 | XR ---
EXAMINATION TYPE: XR knee limited bilateral DATE OF EXAM: 07/30/2021 COMPARISON: NONE HISTORY: Pain TECHNIQUE: 2 views each knee FINDINGS: There is calcification above the left patella. There is spurring on the anterior left abrams la. No evidence of joint effusion. Joint spaces are fairly normal. I see no fracture nor dislocation. There is some mild soft tissue swelling anterior to the left patella. IMPRESSION: Mild left-sided soft tissue swelling. No fracture seen.
--- NOTE | 2021-07-30 21:19 | XR ---
EXAMINATION TYPE: XR chest 2V DATE OF EXAM: 07/30/2021 COMPARISON: 11/03/2018 HISTORY: Multiple falls. Pain TECHNIQUE: 2 views FINDINGS: There is some infiltrate in the left mid lung field. Right lung is clear. Heart size is nor mal. Bony thorax is intact. No obvious rib fracture. IMPRESSION: There is infiltrate in the left midlung field which is much smaller than old exam. Normal heart. No pneumothorax.
--- NOTE | 2021-07-30 21:44 | US ---
EXAMINATION TYPE: US scrotum with doppler. Grayscale and color Doppler Duplex imaging performed of t philomena scrotum. DATE OF EXAM: 07/30/2021 COMPARISON: NONE CLINICAL HISTORY: Scrotal edema/pain. Scrotal swelling EXAM MEASUREMENTS: TESTICLES: Right Testicle: 3.9 x 1.0 x 2.3 cm Left Testicle: 3.0 x 1.5 x 1.9 cm EPIDIDYMIS HEAD: Right Epididymis: 0.9 x 0.5 x 0.8 cm Left Epididymis: 0.6 x 0.7 x 0.5 cm Doppler performed to assess for testicular vascularity; good bilateral color flow and waveforms are s een. There is no evidence of testicular torsion. Presence of hydroceles: Yes Large fluid collection seen. IMPRESSION: Large bilateral hydroceles. No testicular torsion or mass.
[2021-07-30 22:19] LABS: Appearance,Urine Clear (Clear); Bilirubin,Urine Negative (Negative); Blood,Urine Trace (Negative); Color,Urine Yellow; Glucose,Urine (UA) Negative (Negative); Ketones,Urine Negative (Negative); Leukocyte Esterase,Urine Negative (Negative); Mucus,Urine Rare /hpf; Nitrite,Urine Negative (Negative); PH, Urine 6.5 (5.0-8.0); Protein,Urine 1+ (Negative); RBC,Urine 3 /hpf (0-5); Specific Gravity,Urine 1.016 (1.001-1.035); WBC,Urine 1 /hpf (0-5)
[2021-07-30] MEDS ORDERED: ACETAMINOPHEN TAB 325 MG TAB PO PRN (22:31)
[2021-07-30] MEDS ORDERED: ONDANSETRON 4 MG/2 ML VIAL IVP PRN (22:31)
[2021-07-30] MEDS ORDERED: NALOXONE 0.4 MG/ML 1 ML VIAL IV PRN (22:31)
[2021-07-30 23:21] LABS: Creatinine,Urine Random 94.3 mg/dL
[2021-07-31] MEDS: HEPARIN SODIUM,PORCINE/PF 5,000 UNIT/0.5 ML SYRINGE SQ SCH ×3 (02:20→16:50)
[2021-07-31] MEDS: diazePAM 5 MG TAB PO SCH ×3 (02:25→20:57)
--- NOTE | 2021-07-31 02:46 | P.HPIM ---
History of Present Illness H&P Date: 07/30/21 Patient is a 70-year-old male with a PMH of lung cancer (stage III as per ) currently undergoing treatment with Dr. Judd, BPH, and COPD who presents to the emergency room accompanied by his for confusion, falls, and scrotal swelling. History supplemented by the at the bedside reports that the patient was more confused than usual today, and fell multiple times in his apartment. The patient recalls feeling lightheaded and falling, which she attributes to his poor diet and decreased oral intake. He reports having lost weight over the past few weeks, and not having the energy that he used to. He also reports gradually enlarging scrotum over the past several months, for which he has not been seen by a physician as of yet. The patient denied experiencing chest discomfort, shortness of breath, nausea, vomiting, abdominal pain, diarrhea, fever, chills, cough. In the emergency room, had/cervical spine CT was unremarkable. The knee x-ray was unremarkable with a chest x-ray showing an infiltrate in the left midlung field smaller than before. Scrotal ultrasound revealed large bilateral hydroceles. EKG reveals sinus rhythm at 80 bpm. Laboratory evaluation was remarkable for sodium of 125 and chloride 90 with serum osmolality 257. Review of systems: Pertinent positives and negatives as discussed in HPI, a complete review of systems was performed and all other systems are negative. Physical examination: General: non toxic, no distress, appears older than stated age, normal weight Derm: no unusual rashes/lesions no unusual ecchymoses, warm, dry Head: atraumatic, normocephalic, symmetric Eyes: EOMI, no lid lag, anicteric sclera, pupils equal round reactive to light ENT: Nose and ears atraumatic, no thrush, no pharyngeal erythema Neck: No thyromegaly, no cervical lymphadenopathy, trachea midline, supple Mouth: no lip lesion, mucus membranes moist Cardiovascular: S1S2 reg, no murmur, positive posterior tibial pulse bilateral, no edema, capillary refill less than 2 seconds Lungs: CTA bilateral, no rhonchi, no rales , no accessory muscle use Abdominal: soft, nontender to palpation, no guarding, no appreciable organomegaly, normal bowel sounds, scrotal enlargement noted Ext: no gross muscle atrophy, muscle strength 3 out of 5 in all 4 extremities grossly, no contractures Neuro: CN II-XI grossly intact, light touch intact all 4 extremities, finger to nose within normal limits, Psych: Alert, oriented to person and place only, not oriented to time Assessment/plan Hypochloremic hyponatremia -Serum osmolality low -Suspected secondary to 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 lung cancer -Fluid restriction for now -Oncology consulted -Urine electrolytes pending Falls, debility with weight loss -May be due to progression of lung cancer -PT consult Hydrocele -Urology consult DVT prophylaxis -Heparin subq The patient is admitted with an anticipated greater than 2 midnight stay for evaluation of hyponatremia CODE STATUS: Full Code Discussed with: Patient Anticipated discharge date: 2-[address]: Home Past Medical History Past Medical History: COPD, GERD/Reflux, Liver Disease, Seizure Disorder Additional Past Medical History / Comment(s): HEPATITS C- SOURCE UNK, GRANDMALL SIEZURE 2012, ARHTRITIS,SHINGLES 2010,CONSTIPATION., Sister states is newly diagnosed with lung cancer. History of Any Multi-Drug Resistant Organisms: None Reported Past Surgical History: Adenoidectomy, Tonsillectomy Additional Past Surgical History / Comment(s): hepatitis C Past Anesthesia/Blood Transfusion Reactions: No Reported Reaction Past Psychological History: Schizophrenia Smoking Status: Never smoker Past Alcohol Use History: None Reported Past Drug Use History: Marijuana - Past Family History Father Family Medical History: Unable to Obtain Additional Family Medical History / Comment(s): PT WAS ADOPTED Mother Family Medical History: Unable to Obtain Additional Family Medical History / Comment(s): PT WAS ADOPTED, Medications and Allergies Home Medications Medication Instructions Recorded Confirmed Type diphenhydrAMINE [Benadryl] 25 mg PO BID 06/30/14 07/30/21 History Benztropine Mesylate [Cogentin] 1 mg PO DAILY 10/26/18 07/30/21 History Finasteride [Proscar] 5 mg PO DAILY 10/26/18 07/30/21 History Tamsulosin [Flomax] 0.4 mg PO DAILY 10/26/18 07/30/21 History risperiDONE [RisperDAL] 1 mg PO BID 10/26/18 07/30/21 History Diazepam [Valium] 5 mg PO BID 07/30/21 07/30/21 History Fluticasone/Salmeterol [Advair 1 puff INHALATION RT-BID 07/30/21 07/30/21 History 250-50 Diskus] Omeprazole 40 mg PO DAILY 07/30/21 07/30/21 History Allergies Allergy/AdvReac Type Severity Reaction Status Date / Time No Known Allergies Allergy Verified 07/30/21 23:36 Physical Exam Vitals: Vital Signs Temp Pulse Resp BP Pulse Ox 07/30/21 23:00 81 16 128/77 95 07/30/21 21:04 81 16 123/72 94 L 07/30/21 20:00 98.2 F 88 18 136/87 96 Intake and Output 07/30/21 07/30/21 07/31/21 14:59 22:59 06:59 Other: Weight 65.771 kg Results CBC & Chem 7: 07/30/21 20:30 07/30/21 20:30 Labs: Abnormal Lab Results - Last 24 Hours (Table) 07/30/21 07/30/21 07/30/21 Range/Units 20:30 20:30 21:54 WBC 12.1 H (3.8-10.6) k/uL RBC 3.82 L (4.30-5.90) m/uL Hgb 11.4 L (13.0-17.5) gm/dL Hct 34.8 L (39.0-53.0) % Neutrophils # 9.8 H (1.3-7.7) k/uL Sodium 125 L (137-145) mmol/L Chloride 90 L (98-107) mmol/L BUN 8 L (9-20) mg/dL Creatinine 0.63 L (0.66-1.25) mg/dL Calcium 8.2 L (8.4-10.2) mg/dL AST 84 H (17-59) U/L Urine Protein 1+ H (Negative) Urine Blood Trace H (Negative) Urine Mucus Rare H (None) /hpf
[2021-07-31 07:30] LABS: Basophils % (A) 0 %; Eosinophils # (A) 0.1 k/uL (0-0.7); Eosinophils % (A) 1 %; HCT 34.9 % (39.0-53.0); HGB 11.2 gm/dL (13.0-17.5); Lymphocytes # (A) 1.1 k/uL (1.0-4.8); Lymphocytes % (A) 18 %; MCH 29.2 pg (25.0-35.0); MCV 91.4 fL (80.0-100.0); Mean Platelet Volume 6.2; Monocytes # (A) 0.5 k/uL (0-1.0); Monocytes % (A) 9 %; Neutrophils % (A) 69 %; Platelet Count 264 k/uL (150-450); RBC 3.82 m/uL (4.30-5.90); RDW 14.8 % (11.5-15.5); WBC 5.9 k/uL (3.8-10.6)
[2021-07-31 07:46] LABS: Potassium 3.8 mmol/L (3.5-5.1)
[2021-07-31 07:47] LABS: ALT 29 U/L (4-49); AST 68 U/L (17-59); African American GFR (CKD) >90 (>60 ml/min/1.73 sqM); Alkaline Phosphatase 54 U/L (38-126); Anion Gap 5 mmol/L; Blood Urea Nitrogen 8 mg/dL (9-20); Calcium 8.2 mg/dL (8.4-10.2); Carbon Dioxide 27 mmol/L (22-30); Chloride 96 mmol/L (98-107); Glucose 88 mg/dL (74-99); Non-African American GFR(CKD) >90 (>60 ml/min/1.73 sqM); Phosphorus 3.2 mg/dL (2.5-4.5); Sodium 128 mmol/L (137-145); Total Bilirubin 0.5 mg/dL (0.2-1.3)
[2021-07-31] MEDS: PANTOPRAZOLE 40 MG TABLET PO SCH (08:55)
[2021-07-31] MEDS: diphenhydrAMINE 25 MG CAP PO SCH ×2 (08:55→20:56)
[2021-07-31] MEDS: TAMSULOSIN 0.4 MG CAP.ER.24H PO SCH (08:55)
[2021-07-31] MEDS: BENZTROPINE MESYLATE 1 MG TAB PO SCH (08:55)
[2021-07-31] MEDS: risperiDONE 1 MG TAB PO SCH ×2 (08:55→20:57)
[2021-07-31] MEDS: FINASTERIDE 5 MG TAB PO SCH (08:55)
[2021-07-31] MEDS ORDERED: PANTOPRAZOLE 40 MG/10 ML VIAL IV SCH (09:00)
--- NOTE | 2021-07-31 11:12 | P.NPCON ---
History of Present Illness - Reason for Consult hyponatremia - History of Present Illness Reason for consultation: Hyponatremia History of present illness: I sent patient is a 70-year-old male seen in consu ltation for hyponatremia. Patient's sodium level on admission was 125 and is 128 today. He is maintained on normal saline. Patient presented to the hospital due to worsening scrotal swelling. Patient does have history of dementia. He also has history of lung cancer and is maintained on chemotherapy. Scrotum ultrasound showed large bilateral hydroceles. No testicular torsion or mass was present. Urology has been consulted. Bladder scan this morning revealed over 700 mL of urine and a Gonsalves catheter is being placed. Patient is not a very reliable historian. He denies any vomiting or diarrhea. States his oral intake hasn't been back at the last few days. Blood pressure stable. No history of diabetes. I don't see any diuretics and his home medication list. I also don't see any nonsteroidals and his home medication list. No history of kidney disease. GFR is at baseline. Creatinine 0.55 today. Vital signs are stable. General: Awake. No acute distress. HEENT: Head exam is unremarkable. LUNGS: Breath sounds decreased. HEART: Rate and Rhythm are regular. ABDOMEN: Soft, distention noted. EXTREMITITES: No edema. 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 History of Any Multi-Drug Resistant Organisms: None Reported Past Surgical History: Adenoidectomy, Tonsillectomy Additional Past Surgical History / Comment(s): hepatitis C Past Anesthesia/Blood Transfusion Reactions: No Reported Reaction Past Psychological History: Schizophrenia Smoking Status: Never smoker Past Alcohol Use History: None Reported Past Drug Use History: Marijuana - Past Family History Father Family Medical History: Unable to Obtain Additional Family Medical History / Comment(s): PT WAS ADOPTED Mother Family Medical History: Unable to Obtain Additional Family Medical History / Comment(s): PT WAS ADOPTED, Medications and Allergies Home Medications Medication Instructions Recorded Confirmed Type diphenhydrAMINE [Benadryl] 25 mg PO BID 06/30/14 07/30/21 History Benztropine Mesylate [Cogentin] 1 mg PO DAILY 10/26/18 07/30/21 History Finasteride [Proscar] 5 mg PO DAILY 10/26/18 07/30/21 History Tamsulosin [Flomax] 0.4 mg PO DAILY 10/26/18 07/30/21 History risperiDONE [RisperDAL] 1 mg PO BID 10/26/18 07/30/21 History Diazepam [Valium] 5 mg PO BID 07/30/21 07/30/21 History Fluticasone/Salmeterol [Advair 1 puff INHALATION RT-BID 07/30/21 07/30/21 History 250-50 Diskus] Omeprazole 40 mg PO DAILY 07/30/21 07/30/21 History Allergies Allergy/AdvReac Type Severity Reaction Status Date / Time No Known Allergies Allergy Verified 07/30/21 23:36 Physical Exam Vitals: Vital Signs Temp Pulse Pulse Pulse Resp BP BP 07/31/21 04:17 98.5 F 89 18 109/74 07/31/21 02:00 18 07/31/21 01:40 97.8 F 88 18 113/64 07/30/21 23:00 81 16 128/77 07/30/21 21:04 81 16 123/72 07/30/21 20:00 98.2 F 88 18 136/87 Pulse Ox 07/31/21 04:17 97 07/31/21 02:00 07/31/21 01:40 96 07/30/21 23:00 95 07/30/21 21:04 94 L 07/30/21 20:00 96 Intake and Output 07/30/21 07/31/21 07/31/21 22:59 06:59 14:59 Output Total 400 1293 Balance -400 -1293 Output: Urine 400 500 Post Void Residual 793 Other: Voiding Method Urinal Urinal # Voids 1 Weight 65.771 kg 65.771 kg Results - Lab Results Most recent lab results Calcium 8.2 mg/dL (8.4-10.2) L 07/31/21 06:44 Phosphorus 3.2 mg/dL (2.5-4.5) 07/31/21 06:44 Magnesium 2.0 mg/dL (1.6-2.3) 07/31/21 06:44 07/31/21 06:44 07/31/21 06:44 Assessment and Plan Plan: Assessment: 1. Hypovolemic hyponatremia with component of urinary retention. 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 Sodium level 128 today. Urine sodium 42. Urine osmolality 511. TSH normal. 2. Urinary retention. Gonsalves catheter being placed. 3. Bilateral hydroceles. Urology consulted. 4. Lung cancer. Plan: Maintain normal saline. 1500 mL fluid restriction. Encourage oral intake. Add Flomax. Repeat labs in the morning. Thank you for the consultation. I will continue to follow the patient with you during his hospital stay.
[2021-07-31 13:34] LABS: African American GFR (CKD) >90 (>60 ml/min/1.73 sqM); Anion Gap 7 mmol/L; Blood Urea Nitrogen 9 mg/dL (9-20); Calcium 7.9 mg/dL (8.4-10.2); Carbon Dioxide 25 mmol/L (22-30); Chloride 96 mmol/L (98-107); Glucose 155 mg/dL (74-99); Non-African American GFR(CKD) >90 (>60 ml/min/1.73 sqM); Potassium 3.6 mmol/L (3.5-5.1); Sodium 128 mmol/L (137-145)
--- NOTE | 2021-07-31 14:34 | US ---
EXAMINATION TYPE: US venous doppler duplex LE DATE OF EXAM: 07/31/2021 1:01 PM COMPARISON: NONE CLINICAL HISTORY: rule out DVT. Bilat knee pain, no h/o dvt SIDE PERFORMED: Bilateral TECHNIQUE: The lower extremity deep venous system is examined utilizing real time linear array sonog priscila with graded compression, doppler sonography and color-flow sonography. VESSELS IMAGED: Common Femoral Vein Deep Femoral Vein Greater Saphenous Vein * Femoral Vein Popliteal Vein Small Saphenous Vein * Proximal Calf Veins (* superficial vessels) Right Leg: Negative for DVT Left Leg: Negative for DVT IMPRESSION: 1. Bilateral lower extremity ultrasound negative for deep venous thrombosis.
--- NOTE | 2021-07-31 15:57 | P.PN ---
Subjective Progress Note Date: 07/31/21 (delayed charting seen at 0900) Principal diagnosis: weakness and falls Patient is a 70-year-old male with recurrent lung cancer stage III undergoing chemotherapy with Dr. Judd, BPH, and COPD who presented due to confusion, falls, and scrotal swelling. In the ER he underwent an extensive evaluation. CT head and cervical spine was essentially unremarkable, knee x-ray unremarkable, and chest x-ray showed an infiltrate in the left mid lung similar to prior. Scrotal ultrasound revealed large bilateral hydroceles. Laboratory analysis was remarkable for a sodium of 125, chloride 90, and serum osmolality 257. Urine lites showed a osmolality of 531 and a sodium of 42. Patient had significant urinary retention in order for Gerard catheter was placed. Patient seen and examined at bedside. He reports a lot of weakness and confusion yesterday. He states his postoperative follow-up with Dr. Judd shortly to resume chemotherapy. He denies any chest pain, shortness breath, nausea, vomiting. General: Ill appearing, no distress, appears at stated age Derm: warm, dry Head: atraumatic, normocephalic, symmetric Eyes: EOMI, no lid lag, anicteric sclera Mouth: no lip lesion, mucus membranes moist Cardiovascular: S1S2 reg, no murmur, positive posterior tibial pulse bilateral, Lungs: Coarse breath sounds bilateral, no rhonchi, no rales , no accessory muscle use Abdominal: soft, distended, nontender to palpation, no guarding, no appreciable organomegaly Ext: no gross muscle atrophy, no edema, no contractures Neuro: CN II-XI grossly intact, no focal neuro deficits Psych: Alert, oriented, appropriate affect Assessment/plan: Hyponatremia with a component of SIADH -Fluid restriction -Follow sodium levels Lung cancer stage III - consult oncology Falls and debility with weight loss - pt/ot - fall precautions Urinary retention - gerard, flomax Hydrocele - urology recs DVT prophylaxis: Heparin Discussed with: Patient, nursing, Nephrology Anticipated discharge: in 3-[address]: home A total of 35 minutes was spent on the care of this complex patient more than 50% of the time was spent in counseling and care coordination. Objective - Vital Signs Vital signs: Vital Signs Temp 98.3 F 07/31/21 12:37 Pulse 82 07/31/21 12:37 Resp 13 07/31/21 12:37 BP 112/66 07/31/21 12:37 Pulse Ox 97 07/31/21 12:37 FiO2 Intake & Output 07/30/21 07/31/21 07/31/21 18:59 06:59 18:59 Output Total 400 1293 Balance -400 -1293 Weight 65.771 kg Output: Urine 400 500 Post Void Residual 793 Other: Voiding Method Urinal Urinal # Voids 1 - Labs CBC & Chem 7: 07/31/21 06:44 07/31/21 13:03 Labs: Abnormal Lab Results - Last 24 Hours (Table) 07/30/21 07/30/21 07/30/21 Range/Units 20:30 20:30 20:30 WBC 12.1 H (3.8-10.6) k/uL RBC 3.82 L (4.30-5.90) m/uL Hgb 11.4 L (13.0-17.5) gm/dL Hct 34.8 L (39.0-53.0) % Neutrophils # 9.8 H (1.3-7.7) k/uL Sodium 125 L (137-145) mmol/L Chloride 90 L (98-107) mmol/L BUN 8 L (9-20) mg/dL Creatinine 0.63 L (0.66-1.25) mg/dL Glucose (74-99) mg/dL Osmolality 257 L (280-301) mosm/kg Calcium 8.2 L (8.4-10.2) mg/dL AST 84 H (17-59) U/L Total Protein (6.3-8.2) g/dL Albumin (3.5-5.0) g/dL Urine Protein (Negative) Urine Blood (Negative) Urine Mucus (None) /hpf 07/30/21 07/31/21 07/31/21 Range/Units 21:54 06:44 06:44 WBC (3.8-10.6) k/uL RBC 3.82 L (4.30-5.90) m/uL Hgb 11.2 L (13.0-17.5) gm/dL Hct 34.9 L (39.0-53.0) % Neutrophils # (1.3-7.7) k/uL Sodium 128 L (137-145) mmol/L Chloride 96 L (98-107) mmol/L BUN 8 L (9-20) mg/dL Creatinine 0.55 L (0.66-1.25) mg/dL Glucose (74-99) mg/dL Osmolality (280-301) mosm/kg Calcium 8.2 L (8.4-10.2) mg/dL AST 68 H (17-59) U/L Total Protein 6.0 L (6.3-8.2) g/dL Albumin 3.0 L (3.5-5.0) g/dL Urine Protein 1+ H (Negative) Urine Blood Trace H (Negative) Urine Mucus Rare H (None) /hpf 07/31/21 Range/Units 13:03 WBC (3.8-10.6) k/uL RBC (4.30-5.90) m/uL Hgb (13.0-17.5) gm/dL Hct (39.0-53.0) % Neutrophils # (1.3-7.7) k/uL Sodium 128 L (137-145) mmol/L Chloride 96 L (98-107) mmol/L BUN (9-20) mg/dL Creatinine 0.59 L (0.66-1.25) mg/dL Glucose 155 H (74-99) mg/dL Osmolality (280-301) mosm/kg Calcium 7.9 L (8.4-10.2) mg/dL AST (17-59) U/L Total Protein (6.3-8.2) g/dL Albumin (3.5-5.0) g/dL Urine Protein (Negative) Urine Blood (Negative) Urine Mucus (None) /hpf
--- NOTE | 2021-07-31 16:17 | P.CONS ---
History of Present Illness - Reason for Consult Consult date: 07/31/21 Lung Cancer - Chief Complaint Mental status changes - History of Present Illness This is a very nice patient,with post traumatic syndrome and paranoid schizophrenia, who initially was found to have a PRAKASH lung lesion on scan done in 2014 at the [facility],no follow up at that time,he had a CXR in July/2018 which revealed a 6 cm mass in PRAKASH,CT scan of chest on 09/07/2018 showed a 7.0cm mass in PRAKASH extending to pleural surface. On 10/28/2018,PET scan revealed suspicious uptake in 6.6cm mass in PRAKASH extending from pleural surface to left hilum. 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 It was felt by Dr Basurto that he is not to be a surgical candidate. 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 He started maintenance durvalumb in 03/2019,had twice then he refused it. On 12/12/2019,repeat CT scan of chest/abdomen/pelvis revealed stable disease. On 03/14/2020,repeat CT scan of chest/abdomen/pelvis revealed stable disease. On 07/13/2020,repeat CT scan of chest revealed stable disease. On 11/29/2020,repeat CT of chest revealed stable disease. CT in June with concern of progression. During visit today he is confused and unable to appropriately answer. He was last seen in December Dr. Son 2020, has not had a follow-up for more recent CTs. 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 History of Any Multi-Drug Resistant Organisms: None Reported Past Surgical History: Adenoidectomy, Tonsillectomy Additional Past Surgical History / Comment(s): hepatitis C Past Anesthesia/Blood Transfusion Reactions: No Reported Reaction Past Psychological History: Schizophrenia Smoking Status: Never smoker Past Alcohol Use History: None Reported Past Drug Use History: Marijuana - Past Family History Father Family Medical History: Unable to Obtain Additional Family Medical History / Comment(s): PT WAS ADOPTED Mother Family Medical History: Unable to Obtain Additional Family Medical History / Comment(s): PT WAS ADOPTED, Medications and Allergies Home Medications Medication Instructions Recorded Confirmed Type diphenhydrAMINE [Benadryl] 25 mg PO BID 06/30/14 07/30/21 History Benztropine Mesylate [Cogentin] 1 mg PO DAILY 10/26/18 07/30/21 History Finasteride [Proscar] 5 mg PO DAILY 10/26/18 07/30/21 History Tamsulosin [Flomax] 0.4 mg PO DAILY 10/26/18 07/30/21 History risperiDONE [RisperDAL] 1 mg PO BID 10/26/18 07/30/21 History Diazepam [Valium] 5 mg PO BID 07/30/21 07/30/21 History Fluticasone/Salmeterol [Advair 1 puff INHALATION RT-BID 07/30/21 07/30/21 History 250-50 Diskus] Omeprazole 40 mg PO DAILY 07/30/21 07/30/21 History Allergies Allergy/AdvReac Type Severity Reaction Status Date / Time No Known Allergies Allergy Verified 07/30/21 23:36 Physical Exam Vitals: Vital Signs Temp Pulse Pulse Pulse Resp BP BP 07/31/21 04:17 98.5 F 89 18 109/74 07/31/21 02:00 18 07/31/21 01:40 97.8 F 88 18 113/64 07/30/21 23:00 81 16 128/77 07/30/21 21:04 81 16 123/72 07/30/21 20:00 98.2 F 88 18 136/87 Pulse Ox 07/31/21 04:17 97 07/31/21 02:00 07/31/21 01:40 96 07/30/21 23:00 95 07/30/21 21:04 94 L 07/30/21 20:00 96 Intake and Output 07/30/21 07/31/21 07/31/21 22:59 06:59 14:59 Output Total 400 1293 Balance -400 -1293 Output: Urine 400 500 Post Void Residual 793 Other: Voiding Method Urinal Urinal # Voids 1 Weight 65.771 kg 65.771 kg - Constitutional General appearance: cooperative, thin - EENT Eyes: poor dentition ENT: hearing grossly normal - Neck Neck: normal ROM - Respiratory Respiratory: bilateral: diminished - Cardiovascular Rhythm: regularly irregular - Gastrointestinal General gastrointestinal: soft - Integumentary Integumentary: pale - Neurologic poor historian - Musculoskeletal Musculoskeletal: generalized weakness - Psychiatric poor historian Results CBC & Chem 7: 07/31/21 06:44 07/31/21 13:03 Labs: Abnormal Lab Results - Last 24 Hours (Table) 07/30/21 07/30/21 07/30/21 Range/Units 20:30 20:30 20:30 WBC 12.1 H (3.8-10.6) k/uL RBC 3.82 L (4.30-5.90) m/uL Hgb 11.4 L (13.0-17.5) gm/dL Hct 34.8 L (39.0-53.0) % Neutrophils # 9.8 H (1.3-7.7) k/uL Sodium 125 L (137-145) mmol/L Chloride 90 L (98-107) mmol/L BUN 8 L (9-20) mg/dL Creatinine 0.63 L (0.66-1.25) mg/dL Osmolality 257 L (280-301) mosm/kg Calcium 8.2 L (8.4-10.2) mg/dL AST 84 H (17-59) U/L Total Protein (6.3-8.2) g/dL Albumin (3.5-5.0) g/dL Urine Protein (Negative) Urine Blood (Negative) Urine Mucus (None) /hpf 07/30/21 07/31/21 07/31/21 Range/Units 21:54 06:44 06:44 WBC (3.8-10.6) k/uL RBC 3.82 L (4.30-5.90) m/uL Hgb 11.2 L (13.0-17.5) gm/dL Hct 34.9 L (39.0-53.0) % Neutrophils # (1.3-7.7) k/uL Sodium 128 L (137-145) mmol/L Chloride 96 L (98-107) mmol/L BUN 8 L (9-20) mg/dL Creatinine 0.55 L (0.66-1.25) mg/dL Osmolality (280-301) mosm/kg Calcium 8.2 L (8.4-10.2) mg/dL AST 68 H (17-59) U/L Total Protein 6.0 L (6.3-8.2) g/dL Albumin 3.0 L (3.5-5.0) g/dL Urine Protein 1+ H (Negative) Urine Blood Trace H (Negative) Urine Mucus Rare H (None) /hpf Assessment and Plan (1) Lung cancer Current Visit: Yes Status: Acute Code(s): C34.90 - MALIGNANT NEOPLASM OF UNSP PART OF UNSP BRONCHUS OR LUNG SNOMED Code(s): 492868129 (2) Mental status alteration Current Visit: Yes Status: Acute Code(s): R41.82 - ALTERED MENTAL STATUS, UNSPECIFIED SNOMED Code(s): 216677080 (3) Hyponatremia Current Visit: Yes Status: Acute Code(s): E87.1 - HYPO-OSMOLALITY AND HYPONATREMIA SNOMED Code(s): 33897687 Plan: Restaging CTs and MRI of brain ordered Concern of progression given latest CT increased lung mass Excessive thirst and urinary retention Hyponatremia - Await imaging for further recs Dr. Goodwinest: I have completed the full history and physical and developed the above impression and plan, agree with above dictation. Dictated as a scribe
--- NOTE | 2021-07-31 17:35 | P.GSCN ---
History of Present Illness Consult date: 07/31/21 Reason for Consult: Hydrocele Requesting physician: Kavin Sun History of present illness: The patient is a 70-year-old male with a history of stage III lung cancer, currently undergoing treatment under the supervision of Dr. Son. He presented to the ER with confusion, falls, and a several month history of progressive scrotal swelling. Ultrasound reveals large bilateral hydroceles. He denies scrotal discomfort but does state that it is uncomfortable when walking. 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 History of Any Multi-Drug Resistant Organisms: None Reported Past Surgical History: Adenoidectomy, Tonsillectomy Additional Past Surgical History / Comment(s): hepatitis C Past Anesthesia/Blood Transfusion Reactions: No Reported Reaction Past Psychological History: Schizophrenia Smoking Status: Never smoker Past Alcohol Use History: None Reported Past Drug Use History: Marijuana - Past Family History Father Family Medical History: Unable to Obtain Additional Family Medical History / Comment(s): PT WAS ADOPTED Mother Family Medical History: Unable to Obtain Additional Family Medical History / Comment(s): PT WAS ADOPTED, Medications and Allergies Home Medications Medication Instructions Recorded Confirmed Type diphenhydrAMINE [Benadryl] 25 mg PO BID 06/30/14 07/30/21 History Benztropine Mesylate [Cogentin] 1 mg PO DAILY 10/26/18 07/30/21 History Finasteride [Proscar] 5 mg PO DAILY 10/26/18 07/30/21 History Tamsulosin [Flomax] 0.4 mg PO DAILY 10/26/18 07/30/21 History risperiDONE [RisperDAL] 1 mg PO BID 10/26/18 07/30/21 History Diazepam [Valium] 5 mg PO BID 07/30/21 07/30/21 History Fluticasone/Salmeterol [Advair 1 puff INHALATION RT-BID 07/30/21 07/30/21 Histo ry 250-50 Diskus] Omeprazole 40 mg PO DAILY 07/30/21 07/30/21 History Allergies Allergy/AdvReac Type Severity Reaction Status Date / Time No Known Allergies Allergy Verified 07/30/21 23:36 Surgical - Exam Vital Signs Temp Pulse Resp BP Pulse Ox 98.2 F 88 18 136/87 96 07/30/21 20:00 07/30/21 20:00 07/30/21 20:00 07/30/21 20:00 07/30/21 20:00 - General well developed, well nourished, no distress - Respiratory normal respiratory effort - Abdomen Abdomen: soft, non tender, no guarding, no rigid, no rebound - Genitourinary Normal phallus, normal urethral meatus. The left testicle is atrophic. The right testicle cannot be palpated as there is a large right hydrocele. There is no obvious left hydrocele. Results - Labs 07/31/21 06:44 07/31/21 13:03 Abnormal Lab Results - Last 24 Hours (Table) 07/30/21 07/30/21 07/30/21 Range/Units 20:30 20:30 20:30 WBC 12.1 H (3.8-10.6) k/uL RBC 3.82 L (4.30-5.90) m/uL Hgb 11.4 L (13.0-17.5) gm/dL Hct 34.8 L (39.0-53.0) % Neutrophils # 9.8 H (1.3-7.7) k/uL Sodium 125 L (137-145) mmol/L Chloride 90 L (98-107) mmol/L BUN 8 L (9-20) mg/dL Creatinine 0.63 L (0.66-1.25) mg/dL Glucose (74-99) mg/dL Osmolality 257 L (280-301) mosm/kg Calcium 8.2 L (8.4-10.2) mg/dL AST 84 H (17-59) U/L Total Protein (6.3-8.2) g/dL Albumin (3.5-5.0) g/dL Urine Protein (Negative) Urine Blood (Negative) Urine Mucus (None) /hpf 07/30/21 07/31/21 07/31/21 Range/Units 21:54 06:44 06:44 WBC (3.8-10.6) k/uL RBC 3.82 L (4.30-5.90) m/uL Hgb 11.2 L (13.0-17.5) gm/dL Hct 34.9 L (39.0-53.0) % Neutrophils # (1.3-7.7) k/uL Sodium 128 L (137-145) mmol/L Chloride 96 L (98-107) mmol/L BUN 8 L (9-20) mg/dL Creatinine 0.55 L (0.66-1.25) mg/dL Glucose (74-99) mg/dL Osmolality (280-301) mosm/kg Calcium 8.2 L (8.4-10.2) mg/dL AST 68 H (17-59) U/L Total Protein 6.0 L (6.3-8.2) g/dL Albumin 3.0 L (3.5-5.0) g/dL Urine Protein 1+ H (Negative) Urine Blood Trace H (Negative) Urine Mucus Rare H (None) /hpf 07/31/21 Range/Units 13:03 WBC (3.8-10.6) k/uL RBC (4.30-5.90) m/uL Hgb (13.0-17.5) gm/dL Hct (39.0-53.0) % Neutrophils # (1.3-7.7) k/uL Sodium 128 L (137-145) mmol/L Chloride 96 L (98-107) mmol/L BUN (9-20) mg/dL Creatinine 0.59 L (0.66-1.25) mg/dL Glucose 155 H (74-99) mg/dL Osmolality (280-301) mosm/kg Calcium 7.9 L (8.4-10.2) mg/dL AST (17-59) U/L Total Protein (6.3-8.2) g/dL Albumin (3.5-5.0) g/dL Urine Protein (Negative) Urine Blood (Negative) Urine Mucus (None) /hpf Diabetes panel 07/30/21 07/31/21 07/31/21 Range/Units 20:30 06:44 13:03 Sodium 125 L 128 L 128 L (137-145) mmol/L Potassium 3.8 3.8 3.6 (3.5-5.1) mmol/L Chloride 90 L 96 L 96 L (98-107) mmol/L Carbon Dioxide 26 27 25 (22-30) mmol/L BUN 8 L 8 L 9 (9-20) mg/dL Creatinine 0.63 L 0.55 L 0.59 L (0.66-1.25) mg/dL Glucose 98 88 155 H (74-99) mg/dL Calcium 8.2 L 8.2 L 7.9 L (8.4-10.2) mg/dL AST 84 H 68 H (17-59) U/L ALT 32 29 (4-49) U/L Alkaline Phosphatase 57 54 (38-126) U/L Total Protein 6.7 6.0 L (6.3-8.2) g/dL Albumin 3.5 3.0 L (3.5-5.0) g/dL Thyroid panel 07/30/21 Range/Units 20:30 TSH 2.660 (0.465-4.680) mIU/L Calcium panel 07/30/21 07/31/21 07/31/21 Range/Units 20:30 06:44 13:03 Calcium 8.2 L 8.2 L 7.9 L (8.4-10.2) mg/dL Phosphorus 3.2 (2.5-4.5) mg/dL Albumin 3.5 3.0 L (3.5-5.0) g/dL Pituitary panel 07/30/21 07/31/21 07/31/21 Range/Units 20:30 06:44 13:03 Sodium 125 L 128 L 128 L (137-145) mmol/L Potassium 3.8 3.8 3.6 (3.5-5.1) mmol/L Chloride 90 L 96 L 96 L (98-107) mmol/L Carbon Dioxide 26 27 25 (22-30) mmol/L BUN 8 L 8 L 9 (9-20) mg/dL Creatinine 0.63 L 0.55 L 0.59 L (0.66-1.25) mg/dL Glucose 98 88 155 H (74-99) mg/dL Calcium 8.2 L 8.2 L 7.9 L (8.4-10.2) mg/dL TSH 2.660 (0.465-4.680) mIU/L Adrenal panel 07/30/21 07/31/21 07/31/21 Range/Units 20:30 06:44 13:03 Sodium 125 L 128 L 128 L (137-145) mmol/L Potassium 3.8 3.8 3.6 (3.5-5.1) mmol/L Chloride 90 L 96 L 96 L (98-107) mmol/L Carbon Dioxide 26 27 25 (22-30) mmol/L BUN 8 L 8 L 9 (9-20) mg/dL Creatinine 0.63 L 0.55 L 0.59 L (0.66-1.25) mg/dL Glucose 98 88 155 H (74-99) mg/dL Calcium 8.2 L 8.2 L 7.9 L (8.4-10.2) mg/dL Total Bilirubin 0.7 0.5 (0.2-1.3) mg/dL AST 84 H 68 H (17-59) U/L ALT 32 29 (4-49) U/L Alkaline Phosphatase 57 54 (38-126) U/L Total Protein 6.7 6.0 L (6.3-8.2) g/dL Albumin 3.5 3.0 L (3.5-5.0) g/dL - Imaging US - pelvic: report reviewed Assessment and Plan (1) Bilateral hydrocele Current Visit: Yes Status: Acute Code(s): N43.3 - HYDROCELE, UNSPECIFIED SNOMED Code(s): 08274352 Plan: The patient states that he has undergone testicular surgery in the past, though I question this as he is somewhat confused. I reassured him that the right hydrocele does not pose a health risk to him. He was given my card to follow-up as needed regarding the hydrocele. He would likely benefit from a right hydrocele repair, though I don't know this should be a priority given his other more pressing health issues. Please notify me if I can be of any further assistance.
[2021-07-31] MEDS: IOPAMIDOL CONTRAST (ORAL USE) VIAL PO PRN ×2 (19:53→20:55)
--- NOTE | 2021-07-31 23:16 | CT ---
EXAMINATION TYPE: CT ChestAbdPelvis wo/w con DATE OF EXAM: 07/31/2021 COMPARISON: 06/17/2021 HISTORY: Lung cancer. Staging. CT DLP: mGycm Automated exposure control for dose reduction was used. CONTRAST: The contrast was Isovue 100 mL. There is also oral contrast. There is a stellate mass in the lateral left upper lobe measures 4 cm extending from the chest wall t o the pulmonary hilum. There is large hiatal hernia. There are emphysematous changes in both lungs. N o mediastinal adenopathy. Heart size is normal. No pericardial effusion. No pleural effusion. Liver spleen stomach pancreas appear intact. Gallbladder is intact. The bile ducts are not dilated. K idneys have normal size. No hydronephrosis. No evidence of a renal calculus. There is normal contrast opacification of the kidneys. Delayed images show normal renal excretion. There is no retroperitonea l adenopathy. There is Gonsalves catheter in the urinary bladder. There is a large right-sided scrotal hy drocele. There is some retained fecal material in the large bowel. No evidence of free air. Small bowel is not dilated. The thoracic and lumbar vertebra appear intact. No compression fracture. There is a degenerative firs t-degree L4-5 spondylolisthesis. No focal bone destruction. Sternum is intact. The bony pelvis appear s intact. Hip joints appear normal. Sacroiliac joints are intact. IMPRESSION: There is left upper lobe masslike infiltrate extending from the left pulmonary hilum to the chest wal l which is slightly increased in size compared to last exam and consistent with tumor. COPD. Large hiatal hernia. No evidence of metastatic disease in the abdomen pelvis. Large right-sided scrotal hydrocele also pre sent on the old exam. Constipation slightly increased compared to old exam.
[2021-08-01] MEDS: SODIUM CHLORIDE 0.9% 1,000 ML IV SCH ×2 (01:25→21:13)
[2021-08-01] MEDS: HEPARIN SODIUM,PORCINE/PF 5,000 UNIT/0.5 ML SYRINGE SQ SCH ×3 (01:26→16:02)
[2021-08-01 07:26] LABS: HCT 33.5 % (39.0-53.0); MCH 30.2 pg (25.0-35.0); MCHC 32.7 g/dL (31.0-37.0); MCV 92.3 fL (80.0-100.0); Mean Platelet Volume 6.4; Platelet Count 313 k/uL (150-450); RBC 3.63 m/uL (4.30-5.90); RDW 14.8 % (11.5-15.5); WBC 5.9 k/uL (3.8-10.6)
--- NOTE | 2021-08-01 07:37 | MR ---
EXAMINATION TYPE: MR brain wo/w con DATE OF EXAM: 08/01/2021 COMPARISON: CT brain 2 days ago. HISTORY: Assess mets. Newly diagnosed lung cancer. Altered mental status. Recent fall injury. TECHNIQUE: Multiplanar, multisequence images of the brain and brainstem is performed without and with IV contras t, utilizing 6 mL intravenous Gadavist . FINDINGS: Slightly suboptimal as fast brain protocol had to be utilized Diffusion weighted images dem onstrate no evidence of a recent infarct or other diffusion abnormality. There is mild to moderate v entricular and sulcal prominence. Occasional scattered tiny focus of T2 hyperintensity is seen throug hout the white matter bilaterally. Midline structures demonstrate normal morphology. The craniocervical junction appears within normal limits. Post contrast images demonstrate no abnormal enhancement. The dural venous sinuses appear pa tent. The visualized sinuses are clear and the globes are intact. IMPRESSION: Slightly suboptimal without enhancing mass to suggest metastatic disease. Lwnf-cd-discwle e diffuse cerebral atrophy and mild chronic small vessel ischemic change.
[2021-08-01 07:50] LABS: African American GFR (CKD) >90 (>60 ml/min/1.73 sqM); Anion Gap 6 mmol/L; Blood Urea Nitrogen 5 mg/dL (9-20); Carbon Dioxide 28 mmol/L (22-30); Chloride 97 mmol/L (98-107); Glucose 113 mg/dL (74-99); Non-African American GFR(CKD) >90 (>60 ml/min/1.73 sqM); Potassium 3.8 mmol/L (3.5-5.1); Sodium 131 mmol/L (137-145)
[2021-08-01] MEDS: diazePAM 5 MG TAB PO SCH ×2 (08:38→21:11)
[2021-08-01] MEDS: diphenhydrAMINE 25 MG CAP PO SCH ×2 (08:38→21:11)
[2021-08-01] MEDS: TAMSULOSIN 0.4 MG CAP.ER.24H PO SCH (08:38)
[2021-08-01] MEDS: PANTOPRAZOLE 40 MG TABLET PO SCH (08:38)
[2021-08-01] MEDS: FINASTERIDE 5 MG TAB PO SCH (08:39)
[2021-08-01] MEDS: risperiDONE 1 MG TAB PO SCH ×2 (08:42→21:12)
[2021-08-01] MEDS: BENZTROPINE MESYLATE 1 MG TAB PO SCH (08:43)
--- NOTE | 2021-08-01 14:42 | P.PN ---
Subjective Patient seen in follow-up for hyponatremia. Sodium level 131 today. Has a Gonsalves catheter for urinary retention. Oral intake fair. No vomiting or diarrhea. Receiving normal saline. Patient is not a very reliable historian. Vital signs are stable. General: No acute distress. HEENT: Head exam is unremarkable. LUNGS: Breath sounds decreased. HEART: Rate and Rhythm are regular. ABDOMEN: Soft, no distention. EXTREMITITES: No edema. Objective - Vital Signs Vital signs: Vital Signs Temp 97.8 F 08/01/21 04:46 Pulse 84 08/01/21 04:46 Resp 18 08/01/21 08:43 BP 110/69 08/01/21 04:46 Pulse Ox 98 08/01/21 04:46 FiO2 Intake & Output 07/31/21 08/01/21 08/01/21 18:59 06:59 18:59 Output Total 3443 1800 Balance -3443 -1800 Output: Urine 2650 1800 Post Void Residual 793 Other: Voiding Method Urinal Urinal Urinal # Voids 0 - Labs CBC & Chem 7: 08/01/21 06:39 08/01/21 06:39 Labs: Abnormal Lab Results - Last 24 Hours (Table) 07/31/21 07/31/21 08/01/21 Range/Units 13:03 18:12 06:39 RBC 3.63 L (4.30-5.90) m/uL Hgb 11.0 L (13.0-17.5) gm/dL Hct 33.5 L (39.0-53.0) % Sodium 128 L 127 L (137-145) mmol/L Chloride 96 L (98-107) mmol/L BUN (9-20) mg/dL Creatinine 0.59 L (0.66-1.25) mg/dL Glucose 155 H (74-99) mg/dL Calcium 7.9 L (8.4-10.2) mg/dL 08/01/21 Range/Units 06:39 RBC (4.30-5.90) m/uL Hgb (13.0-17.5) gm/dL Hct (39.0-53.0) % Sodium 131 L (137-145) mmol/L Chloride 97 L (98-107) mmol/L BUN 5 L (9-20) mg/dL Creatinine 0.54 L (0.66-1.25) mg/dL Glucose 113 H (74-99) mg/dL Calcium 8.0 L (8.4-10.2) mg/dL Assessment and Plan Plan: Assessment: 1. Hypovolemic hyponatremia with component of urinary retention. 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 Sodium level 131 today. Urine sodium 42. Urine osmolality 511. TSH normal. 2. Urinary retention. Has a Gonsalves catheter. On Flomax. 3. Bilateral hydroceles. Urology following. 4. Lung cancer. Plan: Maintain normal saline. 1500 mL fluid restriction. Encourage oral intake. Repeat labs in the morning.
--- NOTE | 2021-08-01 14:54 | P.PN ---
Subjective Progress Note Date: 08/01/21 CT Chest/Abdomen and pelvis does reveal extension of priminent lung mass, concerning for local progression. No evidence of distant mets. MRI of the brain without metastatic brain involvement identified. Objective - Vital Signs Vital signs: Vital Signs Temp 97.8 F 08/01/21 04:46 Pulse 84 08/01/21 04:46 Resp 18 08/01/21 04:46 BP 110/69 08/01/21 04:46 Pulse Ox 98 08/01/21 04:46 FiO2 Intake & Output 07/31/21 08/01/21 08/01/21 18:59 06:59 18:59 Output Total 3443 1800 Balance -3443 -1800 Output: Urine 2650 1800 Post Void Residual 793 Other: Voiding Method Urinal Urinal # Voids 0 - Exam - Constitutional General appearance: cooperative, thin - EENT Eyes: poor dentition ENT: hearing grossly normal - Neck Neck: normal ROM - Respiratory Respiratory: bilateral: diminished - Cardiovascular Rhythm: regularly irregular - Gastrointestinal General gastrointestinal: soft - Integumentary Integumentary: pale - Neurologic poor historian - Musculoskeletal Musculoskeletal: generalized weakness - Psychiatric poor historian - Labs CBC & Chem 7: 08/01/21 06:39 08/01/21 06:39 Labs: Abnormal Lab Results - Last 24 Hours (Table) 07/31/21 07/31/21 08/01/21 Range/Units 13:03 18:12 06:39 RBC 3.63 L (4.30-5.90) m/uL Hgb 11.0 L (13.0-17.5) gm/dL Hct 33.5 L (39.0-53.0) % Sodium 128 L 127 L (137-145) mmol/L Chloride 96 L (98-107) mmol/L BUN (9-20) mg/dL Creatinine 0.59 L (0.66-1.25) mg/dL Glucose 155 H (74-99) mg/dL Calcium 7.9 L (8.4-10.2) mg/dL 08/01/21 Range/Units 06:39 RBC (4.30-5.90) m/uL Hgb (13.0-17.5) gm/dL Hct (39.0-53.0) % Sodium 131 L (137-145) mmol/L Chloride 97 L (98-107) mmol/L BUN 5 L (9-20) mg/dL Creatinine 0.54 L (0.66-1.25) mg/dL Glucose 113 H (74-99) mg/dL Calcium 8.0 L (8.4-10.2) mg/dL Assessment and Plan (1) Lung cancer Narrative/Plan: Progressive prominent lung mass, concerning for progression MRI brain without evidence of brain mets Current Visit: Yes Status: Acute Code(s): C34.90 - MALIGNANT NEOPLASM OF UNSP PART OF UNSP BRONCHUS OR LUNG SNOMED Code(s): 406323117 (2) Mental status alteration Current Visit: Yes Status: Acute Code(s): R41.82 - ALTERED MENTAL STATUS, UNSPECIFIED SNOMED Code(s): 269891660 (3) Hyponatremia Narrative/Plan: Improving increased 131 Current Visit: Yes Status: Acute Code(s): E87.1 - HYPO-OSMOLALITY AND HYPONATREMIA SNOMED Code(s): 76611396
--- NOTE | 2021-08-01 16:02 | P.PN ---
Subjective Progress Note Date: 08/01/21 (delayed charting seen at 0845) Principal diagnosis: weakness and falls Patient is a 70-year-old male with recurrent lung cancer stage III undergoing chemotherapy with Dr. Judd, BPH, and COPD who presented due to confusion, falls, and scrotal swelling. In the ER he underwent an extensive evaluation. CT head and cervical spine was essentially unremarkable, knee x-ray unremarkable, and chest x-ray showed an infiltrate in the left mid lung similar to prior. Scrotal ultrasound revealed large bilateral hydroceles. Laboratory analysis was remarkable for a sodium of 125, chloride 90, and serum osmolality 257. Urine lites showed a osmolality of 531 and a sodium of 42. Patient had significant urinary retention in order for Gerard catheter was placed. Patient seen and examined at bedside. He is still feeling weak and like his legs are stiff, no nausea, no vomiting. General: Ill appearing, no distress, appears at stated age Derm: warm, dry Head: atraumatic, normocephalic, symmetric Eyes: EOMI, no lid lag, anicteric sclera Mouth: no lip lesion, mucus membranes moist Cardiovascular: S1S2 reg, no murmur, positive posterior tibial pulse bilateral, Lungs: Coarse breath sounds bilateral, no rhonchi, no rales , no accessory muscle use Abdominal: soft, distended, nontender to palpation, no guarding, no appreciable organomegaly Ext: no gross muscle atrophy, no edema, no contractures Neuro: CN II-XI grossly intact, no focal neuro deficits Psych: Alert, oriented, appropriate affect Assessment/plan: Hyponatremia with a component of SIADH -Fluid restriction -Follow sodium levels - nephrology recs appreciated. - sister states that he drinks a lot of coffee and water throughout the day Lung cancer stage III - consult oncology Falls and debility with weight loss - pt/ot - fall precautions Urinary retention - gerard, flomax Hydrocele - urology recs: outpatient follow-up D/W legal guardian and agreeable to rehab. DVT prophylaxis: Heparin Discussed with: Patient, nursing, Nephrology Anticipated discharge: in am Anticipated discharge place: home A total of 35 minutes was spent on the care of this complex patient more than 50% of the time was spent in counseling and care coordination. Objective - Vital Signs Vital signs: Vital Signs Temp 97.8 F 08/01/21 04:46 Pulse 84 08/01/21 04:46 Resp 18 08/01/21 08:43 BP 110/69 08/01/21 04:46 Pulse Ox 98 08/01/21 04:46 FiO2 Intake & Output 07/31/21 08/01/21 08/01/21 18:59 06:59 18:59 Output Total 3443 1800 Balance -3443 -1800 Output: Urine 2650 1800 Post Void Residual 793 Other: Voiding Method Urinal Urinal Urinal # Voids 0 - Labs CBC & Chem 7: 08/01/21 06:39 08/01/21 06:39 Labs: Abnormal Lab Results - Last 24 Hours (Table) 07/31/21 08/01/21 08/01/21 Range/Units 18:12 06:39 06:39 RBC 3.63 L (4.30-5.90) m/uL Hgb 11.0 L (13.0-17.5) gm/dL Hct 33.5 L (39.0-53.0) % Sodium 127 L 131 L (137-145) mmol/L Chloride 97 L (98-107) mmol/L BUN 5 L (9-20) mg/dL Creatinine 0.54 L (0.66-1.25) mg/dL Glucose 113 H (74-99) mg/dL Calcium 8.0 L (8.4-10.2) mg/dL
[2021-08-01 22:10] VITALS: RESP 16
[2021-08-02] MEDS: HEPARIN SODIUM,PORCINE/PF 5,000 UNIT/0.5 ML SYRINGE SQ SCH ×2 (01:04→07:35)
[2021-08-02 05:03] VITALS: BP 134/77; PULSE 74; TEMP 98.1
[2021-08-02 06:23] LABS: African American GFR (CKD) >90 (>60 ml/min/1.73 sqM); Anion Gap 8 mmol/L; Blood Urea Nitrogen 7 mg/dL (9-20); Calcium 8.7 mg/dL (8.4-10.2); Carbon Dioxide 27 mmol/L (22-30); Chloride 97 mmol/L (98-107); Glucose 96 mg/dL (74-99); Magnesium 1.8 mg/dL (1.6-2.3); Non-African American GFR(CKD) >90 (>60 ml/min/1.73 sqM); Potassium 4.4 mmol/L (3.5-5.1); Sodium 132 mmol/L (137-145)
[2021-08-02] MEDS: diphenhydrAMINE 25 MG CAP PO SCH (07:36)
[2021-08-02] MEDS: BENZTROPINE MESYLATE 1 MG TAB PO SCH (07:36)
[2021-08-02] MEDS: risperiDONE 1 MG TAB PO SCH (07:36)
[2021-08-02] MEDS: TAMSULOSIN 0.4 MG CAP.ER.24H PO SCH (07:36)
[2021-08-02] MEDS: PANTOPRAZOLE 40 MG TABLET PO SCH (07:36)
[2021-08-02] MEDS: FINASTERIDE 5 MG TAB PO SCH (07:36)
[2021-08-02] MEDS: diazePAM 5 MG TAB PO SCH (07:36)
--- NOTE | 2021-08-02 11:01 | P.PN ---
Subjective Patient seen in follow-up for hyponatremia. Sodium level 132 today. Has a Gonsalves catheter for urinary retention. Oral intake fair. No vomiting or diarrhea. Receiving normal saline. He is requesting to drink a large Pepsi. Wants to go home. Vital signs are stable. General: No acute distress. HEENT: Head exam is unremarkable. LUNGS: Breath sounds decreased. HEART: Rate and Rhythm are regular. ABDOMEN: Soft, no distention. EXTREMITITES: No edema. Objective - Vital Signs Vital signs: Vital Signs Temp 98.1 F 08/02/21 05:00 Pulse 74 08/02/21 05:00 Resp 16 08/02/21 05:00 BP 134/77 08/02/21 05:00 Pulse Ox 98 08/02/21 05:00 FiO2 Intake & Output 08/01/21 08/02/21 08/02/21 18:59 06:59 18:59 Intake Total 120 720 Output Total 2250 3100 1100 Balance -2130 -2380 -1100 Intake: Oral 120 720 Output: Urine 2250 3100 1100 Uretheral (Gonsalves) 2100 Other: Voiding Method Urinal Indwelling Catheter - Labs CBC & Chem 7: 08/01/21 06:39 08/02/21 05:49 Labs: Abnormal Lab Results - Last 24 Hours (Table) 08/02/21 Range/Units 05:49 Sodium 132 L (137-145) mmol/L Chloride 97 L (98-107) mmol/L BUN 7 L (9-20) mg/dL Creatinine 0.54 L (0.66-1.25) mg/dL Assessment and Plan Plan: Assessment: 1. Hypovolemic hyponatremia with component of urinary retention. 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 Sodium level 132 today. Urine sodium 42. Urine osmolality 511. TSH normal. 2. Urinary retention. Has a Gonsalves catheter. On Flomax. 3. Bilateral hydroceles. Urology following. 4. Lung cancer. Plan: Maintain normal saline. 1500 mL fluid restriction. Encourage oral intake. Patient to follow up outpatient in 1-2 weeks post discharge.
--- NOTE | 2021-08-02 12:11 | P.DS ---
Providers Date of admission: 07/31/21 00:01 Attending physician: Kavin Sun MD Consults: 07/30/21 22:52 Consult Physician Urgent Consulting Provider: Tutu Reddy Consult Reason/Comments: History of lung cancer, hyponatremia Do you want consulting provider notified?: Yes, Notify in am 07/30/21 22:53 Consult Physician Urgent Consulting Provider: Jose Conley Consult Reason/Comments: Hydrocele Do you want consulting provider notified?: Yes, Notify in am 07/31/21 08:53 Consult Physician Routine Consulting Provider: Jermaine Mccloud Consult Reason/Comments: hyponatremia Do you want consulting provider notified?: Yes Primary care physician: [facility] Hospital Course: 70-year-old male with lung cancer stage III undergoing chemotherapy, BPH, COPD who presented secondary to confusion, falls and scrotal swelling. He underwent extensive evaluation in the ER. CT of the head was negative for acute intracranial abnormality. His scrotal ultrasound revealed large bilateral hydrocele for which urology consultation was taken and they recommended outpatient follow-up. Patient also had urinary retention for which Gonsalves catheter was placed. He had presenting sodium of 125 and therefore was treated for SIADH. Today sodium is 132. He was seen and examined at bedside today, he reports that he feels much better and that his strength has returned. He was able to ambulate out of the room and in the halls today. He denied recommendations for rehab placement and wants to get discharged home with home health care. He is clinically and hemodynamically stable. Discussed with patient, nursing staff and case management. Patient's sister will be taking patient home and will be taking care of him according to sample case porter. He will follow-up with his PCP and urology clinic along with nephrology clinic on an outpatient basis. Constitutional: No acute distress, conversant, pleasant Eyes: Anicteric sclerae, moist conjunctiva, no lid-lag PERRLA HENMT: Normocephalic / Atraumatic oropharynx clear, no erythema, exudates Neck: Supple, full range of motion, nontender, no masses, or JVD no carotid bruits no thyromegaly no lymphadenopathy Lungs: Bilateral equal air entry with no wheezing or crackles. No use of accessory muscles. Cardiovascular: Heart regular in rate and rhythm, no murmur, no peripheral edema Abdominal: Soft, Nontender, no guarding, rebound or rigidity abdomen moving with respiration normoactive bowel sounds no hepatomegaly, No splenomegaly no palpable mass no abdominal wall hernia noted Skin: Normal temperature, tone, texture, turgor no induration no subcutaneous nodules no rash,lesions no ulcers Extremities: No digital cyanosis no clubbing pedal pulses intact and symmetrical radial pulses intact and symmetrical normal gait and station no calf tenderness Psychiatric: Alert and oriented to person, place and time appropriate affect intact judgement Neuro: Muscle Strength 5/5 in all 4 extremities sensation to light touch grossly present throughout cranial nerves II-XII grossly intact no focal sensory deficits I spent 32 minutes discharging this patient. Assessment: Hyponatremia, likely secondary to SIADH Lung cancer stage III Falls and debility Urinary retention Bilateral hydrocele Schizophrenia Patient Condition at Discharge: Stable Plan - Discharge Summary Discharge Rx Participant: Yes New Discharge Prescriptions: Continue diphenhydrAMINE [Benadryl] 25 mg PO BID Tamsulosin [Flomax] 0.4 mg PO DAILY risperiDONE [RisperDAL] 1 mg PO BID Finasteride [Proscar] 5 mg PO DAILY Benztropine Mesylate [Cogentin] 1 mg PO DAILY Omeprazole 40 mg PO DAILY Fluticasone/Salmeterol [Advair 250-50 Diskus] 1 puff INHALATION RT-BID Diazepam [Valium] 5 mg PO BID Discharge Medication List diphenhydrAMINE [Benadryl] 25 mg PO BID 06/30/14 [History] Benztropine Mesylate [Cogentin] 1 mg PO DAILY 10/26/18 [History] Finasteride [Proscar] 5 mg PO DAILY 10/26/18 [History] Tamsulosin [Flomax] 0.4 mg PO DAILY 10/26/18 [History] risperiDONE [RisperDAL] 1 mg PO BID 10/26/18 [History] Diazepam [Valium] 5 mg PO BID 07/30/21 [History] Fluticasone/Salmeterol [Advair 250-50 Diskus] 1 puff INHALATION RT-BID 07/30/21 [History] Omeprazole 40 mg PO DAILY 07/30/21 [History] Follow up Appointment(s)/Referral(s): [facility],Clinic [Primary Care Provider] - 1-2 days Jose Conley MD [STAFF PHYSICIAN] - 1 Week Patient Instructions/Handouts: Hyponatremia (ED), Hydrocele (DC) Discharge Disposition: HOME WITH HOME HEALTH SERVICES
--- NOTE | 2021-08-02 21:05 | P.PN ---
Subjective Progress Note Date: 08/02/21 PLan was to go to rehab today, however he is planning on discharge home. He has been advised to follow up with Dr. Son within the next two weeks for concern of progression. Objective - Vital Signs Vital signs: Vital Signs Temp 98.1 F 08/02/21 05:00 Pulse 74 08/02/21 05:00 Resp 16 08/02/21 05:00 BP 134/77 08/02/21 05:00 Pulse Ox 98 08/02/21 05:00 FiO2 Intake & Output 08/02/21 08/02/21 08/03/21 06:59 18:59 06:59 Intake Total 720 Output Total 3100 1100 Balance -2380 -1100 Intake: Oral 720 Output: Urine 3100 1100 Uretheral (Gonsalves) 2100 Other: Voiding Method Indwelling Catheter Indwelling Catheter - Exam - Constitutional General appearance: cooperative, thin - EENT Eyes: poor dentition ENT: hearing grossly normal - Neck Neck: normal ROM - Respiratory Respiratory: bilateral: diminished - Cardiovascular Rhythm: regularly irregular - Gastrointestinal General gastrointestinal: soft - Integumentary Integumentary: pale - Neurologic poor historian - Musculoskeletal Musculoskeletal: generalized weakness - Psychiatric poor historian - Labs CBC & Chem 7: 08/01/21 06:39 08/02/21 05:49 Labs: Abnormal Lab Results - Last 24 Hours (Table) 08/02/21 Range/Units 05:49 Sodium 132 L (137-145) mmol/L Chloride 97 L (98-107) mmol/L BUN 7 L (9-20) mg/dL Creatinine 0.54 L (0.66-1.25) mg/dL Assessment and Plan (1) Lung cancer Narrative/Plan: Progressive prominent lung mass, concerning for progression MRI brain without evidence of brain mets Status: Acute Code(s): C34.90 - MALIGNANT NEOPLASM OF UNSP PART OF UNSP BRONCHUS OR LUNG SNOMED Code(s): 760526412 (2) Mental status alteration Status: Acute Code(s): R41.82 - ALTERED MENTAL STATUS, UNSPECIFIED SNOMED Code(s): 899587372 (3) Hyponatremia Narrative/Plan: Improving increased 131 Status: Acute Code(s): E87.1 - HYPO-OSMOLALITY AND HYPONATREMIA SNOMED Code(s): 62783677 Plan: Follow-up with Dr. Son in two weeks for concern of progression.
== END 2021-08-02 16:12 | disposition home health service (06) | DRG 729 ==
LOC: EC 18:23 → 5NMEDONC 07-31 00:01
PROVIDERS: ADMIT Internal Medicine; ATTEND Internal Medicine
DX: N43.3 Hydrocele, unspecified (principal); C34.90 Malignant neoplasm of unspecified part of unspecified bronchus or lung; E22.2 Syndrome of inappropriate secretion of antidiuretic hormone; F20.0 Paranoid schizophrenia; S80.01XA Contusion of right knee, initial encounter; S80.02XA Contusion of left knee, initial encounter; E86.1 Hypovolemia; E83.51 Hypocalcemia; R29.6 Repeated falls; Z91.81 History of falling; B18.2 Chronic viral hepatitis C; M19.90 Unspecified osteoarthritis, unspecified site; F03.90 Unspecified dementia, unspecified severity, without behavioral disturbance, psychotic disturbance, mood disturbance, and anxiety; G40.909 Epilepsy, unspecified, not intractable, without status epilepticus; J44.9 Chronic obstructive pulmonary disease, unspecified; N40.1 Benign prostatic hyperplasia with lower urinary tract symptoms; R33.8 Other retention of urine; Z79.899 Other long term (current) drug therapy; Z85.118 Personal history of other malignant neoplasm of bronchus and lung
CPT/HCPCS: 36415; 70450; 70553; 71046; 71270; 72125; 74178; 76870; 80048; 80053; 81001; 82570; 83735; 83930; 83935; 84100; 84295; 84300; 84443; 84484; 85025; 85027; 93005; 93970; 93975; 96360; 96361; 99285

== ENCOUNTER → 2021-11-19 | Outpatient (CLI) | payer OTHER ==
[2021-11-19 16:51] LABS: African American GFR (CKD) >90 (>60 ml/min/1.73 sqM); Blood Urea Nitrogen 23 mg/dL (9-20); Non-African American GFR(CKD) >90 (>60 ml/min/1.73 sqM)
--- NOTE | 2021-11-19 20:09 | CT ---
EXAMINATION TYPE: CT chest w con CT DLP: 350 mGycm, Automated exposure control for dose reduction was used. DATE OF EXAM: 11/19/2021 5:15 PM COMPARISON: 07/31/2021, 06/17/2021 CT chest abdomen pelvis. CLINICAL INDICATION:Male, 71 years old with history of C34.12 Lung Cancer, Lung CA TECHNIQUE: Multiple axial images were obtained through the chest. Sagittal and coronal reformats were created for review. Contrast used:100cc mL of Isovue 300 with IV Contrast. Oral contrast used: none. FINDINGS: LUNGS/ PLEURA: Similar appearance of the left upper lobe soft tissue extending from the hilum to the to the pleural surface. Findings are not significantly changed from 07/31/2021 and may be minimally in creased from 06/17/2021. No new or enlarging pulmonary nodules identified. No evidence of focal consol idation, pneumothorax or pleural effusion. AIRWAY: Patent and unremarkable. HEART: Size within normal limits. Mild coronary artery atherosclerosis. MEDIASTINUM: No gross evidence of adenopathy. There is a moderate hiatal hernia present. VASCULATURE: No aortic aneurysm. No evidence of filling defect to suggest pulmonary embolus. MUSCULOSKELETAL: No acute osseous abnormalities SOFT TISSUES/LYMPH NODES: Unremarkable. LOWER NECK: No significant findings. UPPER ABDOMEN: Few scattered hepatic cysts are present. Mild prominence to the main pancreatic duct w hich is stable from prior. IMPRESSION: 1. Similar appearance to immediate prior but possibly mildly increased in size from 06/17/2021 of the left upper lobe masslike consolidation with extension to the pleural surface. Findings likely repres enting posttreatment changes with underlying residual disease is not entirely excluded. Attention on follow-up imaging. 2. Moderate hiatal hernia.
== END | disposition home or self-care (01) ==
LOC: RADCTMAIN 16:10
PROVIDERS: ATTEND Internal Medicine Hematology & Oncology
DX: C34.12 Malignant neoplasm of upper lobe, left bronchus or lung (principal); K44.9 Diaphragmatic hernia without obstruction or gangrene
CPT/HCPCS: 82565; 84520; 71260; 36415; Q9967

== ENCOUNTER → 2022-06-27 | Outpatient (CLI) | payer OTHER ==
[2022-06-27 16:46] LABS: African American GFR (CKD) >90 (>60 ml/min/1.73 sqM); Blood Urea Nitrogen 13 mg/dL (9-20); Non-African American GFR(CKD) >90 (>60 ml/min/1.73 sqM)
--- NOTE | 2022-06-27 17:45 | CT ---
EXAMINATION TYPE: CT chest w con DATE OF EXAM: 06/27/2022 COMPARISON: 11/19/2021 HISTORY: Hx of Lung CA. CT DLP: 170.7 mGycm Automated exposure control for dose reduction was used. CONTRAST: CT scan of the chest is performed with IV Contrast, patient injected with 80cc mL of Isovue 300. FINDINGS: LUNGS: Again noted is soft tissue extending from the left hilum to the periphery of the left upper lo be with pleural extension throughout measuring 3.6 x 2.5 cm versus prior measurement of 3.5 x 2.7 cm. This likely reflects posttreatment change. Correlate clinically. No additional nodules or masses see n. There couple of new groundglass infiltrates within the left lower lobe posteriorly image 36 sequen ce 4 which could reflect inflammatory process. The lungs are otherwise clear. Mild changes of hyperin flation with COPD. MEDIASTINUM: There are no greater than 1 cm hilar or mediastinal lymph nodes. No pericardial effusi on is seen. Thoracic aorta is of normal caliber. The heart is not enlarged. Progression of the hiata l hernia which is now moderate to large in size. UPPER ABDOMEN: No significant abnormality appreciated. OTHER: No additional significant abnormality is seen. IMPRESSION: 1. Masslike consolidation left upper lobe is unchanged from prior study the findings likely reflect p osttreatment changes. Underlying residual disease is difficult to exclude. 2. Progression of the hiatal hernia which is now moderate to large in size.
== END | disposition home or self-care (01) ==
LOC: RADCTMAIN 16:07
PROVIDERS: ATTEND Internal Medicine Hematology & Oncology
DX: C34.12 Malignant neoplasm of upper lobe, left bronchus or lung (principal); K44.9 Diaphragmatic hernia without obstruction or gangrene; R91.8 Other nonspecific abnormal finding of lung field
CPT/HCPCS: 82565; 84520; 71260; 36415; Q9967

== ENCOUNTER → 2022-10-31 | Outpatient (CLI) | payer OTHER ==
[2022-10-31 10:21] LABS: African American GFR (CKD) >90 (>60 ml/min/1.73 sqM); Blood Urea Nitrogen 10 mg/dL (9-20); Non-African American GFR(CKD) >90 (>60 ml/min/1.73 sqM)
--- NOTE | 2022-10-31 10:23 | MR ---
EXAMINATION TYPE: MR brain wo/w con DATE OF EXAM: 10/31/2022 COMPARISON: 08/01/2021 HISTORY: Lung cancer, evaluate for metastatic disease. TECHNIQUE: Multiplanar, multisequence images of the brain and brainstem is performed without and with IV contras t, utilizing 5.5 mL intravenous Gadavist . FINDINGS: Diffusion weighted images demonstrate no evidence of a recent infarct or other diffusion ab normality. There is mild to moderate generalized degenerative change. Mild periventricular areas of abnormal sig nal in the white matter compatible with remote microvascular ischemic changes. Midline structures demonstrate normal morphology. The craniocervical junction appears within normal limits. Post contrast images demonstrate no abnormal enhancement. The dural venous sinuses appear pa tent. The bilateral chronic mastoiditis and mild chronic sinusitis. Orbits are symmetric. Nasal septal deviatio n noted. IMPRESSION: 1. Degenerative and remote ischemic change with no evidence suggest intracranial disease.
--- NOTE | 2022-11-02 11:17 | CT ---
EXAMINATION TYPE: CT ChestAbdPelvis w con DATE OF EXAM: 10/31/2022 COMPARISON: 06/27/2022, 11/19/2021 HISTORY: 72-year-old male C34.12, f/u lung ca TECHNIQUE: Contiguous axial scanning of the chest, abdomen, and pelvis performed with IV Contrast, pa tient injected with 100 mL of Isovue 300. Delayed images through the kidneys were obtained. Coronal/s agittal reconstructions performed. CT DLP: 503.2 mGycm Automated exposure control for dose reduction was used. FINDINGS: Chest: Heart normal size with trace anterior pericardial effusion. Aneurysmal aortic root at 4.4 cm, unchang ed. Conventional arch vessel branching anatomy. No thoracic lymphadenopathy size criteria. Left hilar masslike consolidation extending laterally in the upper lobe to the pleural surface remain s unchanged in appearance. A subpleural nodule measuring 9 mm posterior left midlung previously appeared as vague area of ground glass density suggesting infectious/inflammatory process. Attention on follow-up given the more nodul ar appearance now. New 1 cm vague density superior segment left lower lobe, axial image 11 probably a small infectious/i nflammatory focus. ABDOMEN: Moderate to large hiatal hernia involving half of the stomach in the lower chest. Benign 8 mm cyst right liver lobe. No other focal liver lesion is seen. Portal venous system is paten t. No biliary ductal dilatation. Gallbladder, adrenal glands, kidneys, spleen, and pancreas within normal limits. No dilated small bowel, free fluid, free air. Limited assessment for abdominal lymphadenopathy due to possibility of intra-abdominal fat. No obviou s lymphadenopathy seen. Oral contrast progressed through the transverse colon. There is moderate stool burden, increased from prior. Pelvis: Marked distention of the urinary bladder filling the pelvis from side to side. Prostate gland measure s 3.7 cm wide. No abnormal fluid collection in the pelvis or pelvic lymphadenopathy. Bones: Bridging anterior endplate spondylosis thoracolumbar junction. Hypertrophic facet arthropathy lower lumbar spine with grade 1 anterolisthesis L4-L5. IMPRESSION: 1. THE CONFIGURATION OF THE LEFT HILAR MASSLIKE CONSOLIDATION EXTENDING LATERALLY TO THE PLEURAL SURF LILI REMAINS UNCHANGED OVER THE COURSE OF THE LAST 2 PRIOR STUDIES. LIKELY POSTTREATMENT CHANGE. ONGOI NG FOLLOW-UP CLINICALLY INDICATED. 2. A 9 MM SUBPLEURAL PULMONARY NODULE POSTERIOR LEFT MIDLUNG PREVIOUSLY APPEARED A VAGUE AREA OF G ROUNDGLASS DENSITY. INFECTIOUS/INFLAMMATORY ETIOLOGY IS POSSIBLE. ATTENTION ON FOLLOW-UP GIVEN THE MO RE NODULAR APPEARANCE NOW. 3. ALSO, ATTENTION ON FOLLOW-UP FOR A NEW 1 CM VAGUE DENSITY SUPERIOR SEGMENT LEFT LOWER LOBE. PROBAB LY INFECTIOUS/INFLAMMATORY. 4. INCIDENTAL: MODERATE TO LARGE HIATAL HERNIA AGAIN NOTED. CORRELATE FOR CONSTIPATION.
== END | disposition home or self-care (01) ==
LOC: RADMRIMAIN 08:51
PROVIDERS: ATTEND Internal Medicine Hematology & Oncology
DX: C34.12 Malignant neoplasm of upper lobe, left bronchus or lung (principal); I67.82 Cerebral ischemia; R91.1 Solitary pulmonary nodule; J98.4 Other disorders of lung; K44.9 Diaphragmatic hernia without obstruction or gangrene
CPT/HCPCS: 82565; 84520; 71260; 74177; 36415; 70553; Q9967; A9585

== ENCOUNTER → 2023-05-05 | Outpatient (CLI) | payer OTHER ==
[2023-05-05 15:48] LABS: African American GFR (CKD) >90 (>60 ml/min/1.73 sqM); Blood Urea Nitrogen 18 mg/dL (9-20); Non-African American GFR(CKD) >90 (>60 ml/min/1.73 sqM)
--- NOTE | 2023-05-05 21:49 | CT ---
EXAMINATION TYPE: CT ChestAbdPelvis w con CT DLP: 1018 mGycm, Automated exposure control for dose reduction was used. DATE OF EXAM: 05/05/2023 5:03 PM COMPARISON: 10/31/2022 CLINICAL INDICATION:Male, 72 years old with history of C34.12 LUNG CANCER; [facility], lung cancer Technique: CT ChestAbdPelvis w con; Multiple axial images were obtained. Two-dimensional coronal and sagittal reconstructions were obtained. Contrast used:100 mL of Isovue 370 with IV Contrast, Oral contrast used: with Oral Contrast Findings: CHEST: LUNGS/ PLEURA: Posttreatment changes of the left upper lung. The area of consolidation posttreatment changes is not significantly changed. No right lower lung pulmonary nodule has increased in conspicui ty. No measuring 4 mm previously may have been present with flexion and is slightly different compare d to prior. No evidence for Focal consolidation, pneumothorax or pleural effusion. The lung parenchym a appears unremarkable. AIRWAY: Patent and unremarkable. HEART: Size within normal limits. MEDIASTINUM: No gross evidence of adenopathy. Large hiatal hernia is present. VASCULATURE: No aortic aneurysm. MUSCULOSKELETAL: No acute osseous abnormalities. Left-sided rib fractures which appear subacute with incomplete fusion. SOFT TISSUES/LYMPH NODES: Unremarkable. LOWER NECK: No significant findings. ABDOMEN: ABDOMEN LIVER: Unremarkable GALLBLADDER AND BILE DUCTS: Unremarkable. PANCREAS: Unremarkable. SPLEEN: Unremarkable. ADRENAL GLANDS: Unremarkable. KIDNEYS AND URETERS: No evidence of hydronephrosis or renal calculus. The ureters are unremarkable. PELVIS BLADDER: Unremarkable REPRODUCTIVE: Unremarkable. ABDOMEN & PELVIS STOMACH AND BOWEL: No evidence of bowel obstruction. PERITONEUM: No evidence of pneumoperitoneum or free fluid. VASCULATURE: No evidence of aortic aneurysm. MUSCULOSKELETAL: No acute osseous abnormalities. Moderate disc degeneration changes are present throu ghout the thoracolumbar spine. Grade 1 anterolisthesis of L4 and L5. LYMPH NODES: No gross evidence for lymphadenopathy. SOFT TISSUE/ABDOMINAL WALL: Unremarkable IMPRESSION: More prominent right lower lobe pulmonary nodule measuring 4 mm which may been present on prior on . Otherwise, the left upper lung consolidation changes are not significantly changed. No othe r lymphadenopathy identified. Consider short-term follow-up CT chest in 3 6 months to ensure stabilit y and/or resolution and then consideration for back to surveillance imaging at that time could be con sidered.
== END | disposition home or self-care (01) ==
LOC: RADCTMAIN 14:51
PROVIDERS: ATTEND Internal Medicine Hematology & Oncology
DX: R91.1 Solitary pulmonary nodule (principal); J98.4 Other disorders of lung; C34.12 Malignant neoplasm of upper lobe, left bronchus or lung; F20.0 Paranoid schizophrenia; J44.9 Chronic obstructive pulmonary disease, unspecified; B18.2 Chronic viral hepatitis C
CPT/HCPCS: 82565; 84520; 71260; 74177; 36415; Q9967

== ENCOUNTER 2023-07-04 15:16 | Emergency (ER) | payer OTHER ==
[2023-07-04 15:41] VITALS: RESP 18
[2023-07-04] MEDS: ACETAMINOPHEN TAB 325 MG TAB PO STA (15:52)
--- NOTE | 2023-07-04 15:53 | ED ---
Upper Extremity HPI - General Chief Complaint: Extremity Injury, Upper Stated Complaint: Injury to R hand Time Seen by Provider: 07/04/23 15:50 Source: patient, family, RN notes reviewed Mode of arrival: ambulatory Limitations: no limitations - History of Present Illness Initial Comments: 72-year-old male presenting to the ER with a chief complaint of right wrist pain. Patient states extremely painful to move and his fingers are "locked". Guardian states he started complaining of wrist pain this morning. Patient is a poor historian. He denies any known injuries, paresthesias. Patient has not been taking anything for pain currently. No other complaints at this time. - Related Data Home Medications Medication Instructions Recorded Confirmed diphenhydrAMINE [Benadryl] 25 mg PO BID 06/30/14 01/14/23 Benztropine Mesylate [Cogentin] 1 mg PO DAILY 10/26/18 01/14/23 Finasteride [Proscar] 5 mg PO DAILY 10/26/18 01/14/23 Tamsulosin [Flomax] 0.4 mg PO DAILY 10/26/18 01/14/23 risperiDONE [RisperDAL] 1 mg PO BID 10/26/18 01/14/23 Fluticasone Propion/Salmeterol 1 puff INHALATION RT-BID 07/30/21 01/14/23 [Advair 250-50 Diskus] Omeprazole 40 mg PO DAILY 07/30/21 01/14/23 diazePAM [Valium] 5 mg PO BID 07/30/21 01/14/23 Allergies Allergy/AdvReac Type Severity Reaction Status Date / Time No Known Allergies Allergy Verified 01/14/23 13:58 Review of Systems ROS Statement: Those systems with pertinent positive or pertinent negative responses have been documented in the HPI. ROS Other: All systems not noted in ROS Statement are negative. 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 MENTALLY HANDICAPPED-COOPERATIVE History of Any Multi-Drug Resistant Organisms: None Reported Past Surgical History: Adenoidectomy, Tonsillectomy Additional Past Surgical History / Comment(s): hepatitis C Past Anesthesia/Blood Transfusion Reactions: No Reported Reaction Past Psychological History: Schizophrenia Smoking Status: Former smoker Past Alcohol Use History: Daily Past Drug Use History: None Reported - Past Family History Father Family Medical History: Unable to Obtain Additional Family Medical History / Comment(s): PT WAS ADOPTED Mother Family Medical History: Unable to Obtain Additional Family Medical History / Comment(s): PT WAS ADOPTED, General Exam Limitations: no limitations General appearance: alert, in no apparent distress Respiratory exam: Present: normal lung sounds bilaterally. Absent: respiratory distress, wheezes, rales, rhonchi, stridor Cardiovascular Exam: Present: regular rate, normal rhythm, normal heart sounds. Absent: systolic murmur, diastolic murmur, rubs, gallop, clicks Extremities exam: Present: tenderness (Right anatomical snuffbox. Edema and mild erythema to dorsal hand. Limited range of motion of right digits due to pain. 2+ right radial pulse. Sensation intact.) Neurological exam: Present: alert Skin exam: Present: warm, dry, intact, normal color. Absent: rash Course Vital Signs 07/04/23 07/04/23 15:38 17:22 Temperature 98.4 F 97.9 F Pulse Rate 83 76 Respiratory 18 18 Rate Blood Pressure 99/62 102/70 O2 Sat by Pulse 99 96 Oximetry Procedures - Orthopedic Splinting/Casting Injury #1 Side: right Upper Extremity Injury Location: short arm, wrist Upper Extremity Immobilizer: posterior splint Medical Decision Making - Medical Decision Making Was pt. sent in by a medical professional or institution (JEET Tristan, RIPSAW OPERATOR, urgent care, hospital, or group home...) When possible be specific @ -No Did you speak to anyone other than the patient for history (EMS, parent, family, police, friend...)? What history was obtained from this source @ -No Did you review nursing and triage notes (agree or disagree)? Why? @ -I reviewed and agree with nursing and triage notes Were old charts reviewed (outside hosp., previous admission, EMS record, old EKG, old radiological studies, urgent care reports/EKG's, group home records)? Report findings @ -No old charts were reviewed Differential Diagnosis (chest pain, altered mental status, abdominal pain women, abdominal pain men, vaginal bleeding, weakness, fever, dyspnea, syncope, headache, dizziness, GI bleed, back pain, seizure, CVA, palpatations, mental health, musculoskeletal)? @ -Differential Musculoskeletal: Muscular strain, contusion, ligament sprain, fracture, arthritis, septic arthritis, bursitis, cellulitis, muscle spasm, nerve compression, DVT, arterial occlusion, herpes zoster, electrolyte abnormality, tumor.... This is not meant to be in all inclusive list EKG interpreted by me (3pts min.). @ -None X-rays interpreted by me (1pt min.). @ -Right wrist and hand x-rays interpreted by me negative for acute process. CT interpreted by me (1pt min.). @ -None done U/S interpreted by me (1pt. min.). @ -None done What testing was considered but not performed or refused? (CT, X-rays, U/S, labs)? Why? @ -None What meds were considered but not given or refused? Why? @ -None Did you discuss the management of the patient with other professionals (professionals i.e. , PA, [employer]SAW OPERATOR, lab, RT, psych nurse, clinical social worker, furnace packer, teacher, botanical technical officer, child support case officer)? Give summary @ -No Was smoking cessation discussed for >3mins.? @ -No Was critical care preformed (if so, how long)? @ -No Were there social determinants of health that impacted care today? How? (Homelessness, low income, unemployed, alcoholism, drug addiction, transportation, low edu. Level, literacy, decrease access to med. care, assisted, rehab)? @ -No Was there de-escalation of care discussed even if they declined (Discuss DNR or withdrawal of care, Hospice)? DNR status @ -No What co-morbidities impacted this encounter? (DM, HTN, Smoking, COPD, CAD, Cancer, CVA, ARF, Chemo, Hep., AIDS, mental health diagnosis, sleep apnea, morbid obesity)? @ -None Was patient admitted / discharged? Hospital course, mention meds given and route, prescriptions, significant lab abnormalities, going to OR and other pertinent info. @ -Discharged. 72 year old male presenting to the ER with a chief complaint of right hand pain. History and physical exam completed. Vitals stable. Right upper extremity vascular intact. Patient no signs acute distress and nontoxic- appearing. Right tenderness to anatomical snuffbox. X-rays obtained negative for acute process. PO tylenol given in ER. Results discussed with patient, all questions answered. Splint placed. I advised close follow-up with orthopedics, referral given. Return parameters discussed. Patient discharged stable condition with follow-up to orthopedics. Patient and guardian, at bedside, verbally expressed understanding and agreement with care plan. Case discussed with ED attending, Dr. Peters. Undiagnosed new problem with uncertain prognosis? @ -No Drug Therapy requiring intensive monitoring for toxicity (Heparin, Nitro, Insulin, Cardizem)? @ -No Were any procedures done? @ -No Diagnosis/symptom? @ -Hand pain Acute, or Chronic, or Acute on Chronic? @ -Acute Uncomplicated (without systemic symptoms) or Complicated (systemic symptoms)? @ -Uncomplicated Side effects of treatment? @ -No Exacerbation, Progression, or Severe Exacerbation? @ -No Poses a threat to life or bodily function? How? (Chest pain, [place], [place], pneumonia, PE, COPD, DKA, ARF, appy, cholecystitis, CVA, Diverticulitis, Homicidal, Suicidal, threat to staff... and all critical care pts) @ -No - Radiology Data Radiology results: report reviewed, image reviewed Disposition Clinical Impression: Hand pain Disposition: HOME SELF-CARE Condition: Stable Instructions (If sedation given, give patient instructions): Hand Sprain (ED) Additional Instructions: Follow-up with orthopedics next week. Return to the ER for any new or worse concerns. Is patient prescribed a controlled substance at d/c from ED?: No Referrals: [facility] [Primary Care Provider] - 1-2 days Escobar Moffett DO [Doctor of Osteopathic Medicine] - 1-2 days Time of Disposition: 17:17
--- NOTE | 2023-07-04 17:00 | XR ---
EXAMINATION TYPE: XR wrist complete 4 views RT, XR hand complete 3 views RT DATE OF EXAM: 07/04/2023 COMPARISON: NONE HISTORY: 72-year-old male with pain FINDINGS: Wrist: Positive ulnar variance. Soft tissue swelling about the wrist. There is slight dorsal angulation of t he distal radius and at least moderate degenerative change at the radioscaphoid joint. Metacarpal com partment shows some degenerative changes well. No acute fracture lucency is clearly identified. Limit ed by osteopenia. Hand: Moderate to severe degenerative change first CMC joint. Mild to moderate degenerative changes scatter ed throughout the DIP joints. Osteopenia. No displaced fracture seen. Old healed fracture deformity f ifth metacarpal neck. IMPRESSION (wrist and hand): 1. Soft tissue swelling about the wrist. Correlate for history of prior injury as we suspect a chroni elvia healed impacted distal radial fracture deformity healed in slight dorsal angulation. Secondary positive ulnar variance. 2. 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 3. Moderate to severe OA at the base of the thumb and mild to moderate scattered throughout the dista l finger joints. 4. Additional old healed fracture deformity fifth metacarpal neck. 5. Osteopenia limiting assessment. No displaced fracture seen.
[2023-07-04 17:35] VITALS: BP 102/70; PULSE 76; TEMP 97.9
== END 2023-07-04 17:24 | disposition home or self-care (01) ==
LOC: EC 15:16
DX: M79.641 Pain in right hand (principal); Z87.891 Personal history of nicotine dependence
CPT/HCPCS: 29125; 99283

== ENCOUNTER → 2023-09-30 | Outpatient (CLI) | payer OTHER ==
[2023-09-30 16:50] LABS: African American GFR (CKD) >90 (>60 ml/min/1.73 sqM); Blood Urea Nitrogen 14 mg/dL (9-20); Non-African American GFR(CKD) 89 (>60 ml/min/1.73 sqM)
--- NOTE | 2023-09-30 17:36 | CT ---
EXAMINATION TYPE: CT chest w con CT DLP: 276 mGycm, Automated exposure control for dose reduction was used. DATE OF EXAM: 09/30/2023 5:11 PM COMPARISON: 05/05/2023 CLINICAL INDICATION:Male, 72 years old with history of C34.12 LUNG CANCER, F20.0 SCHIZOPHRENIA, J44.9 COPD, B18.2; [facility], lung cancer x 4 years. Priors in PACS TECHNIQUE: Multiple axial images were obtained through the chest. Sagittal and coronal reformats were created for review. Contrast used:100ml mL of Isovue 300 with IV Contrast (None if empty) Oral contrast used: (None if empty) FINDINGS: LUNGS/ PLEURA: Similar morphology to the left upper lobe consolidation. Increasing size of right lowe r lobe pulmonary nodule now measuring 8 mm previous of 5 mm. Series 3 image 38. Nodule in the right u pper lung is new series 3 image 21 somewhat ill-defined measuring 3 mm with some groundglass opacitie s around it.. AIRWAY: Patent and unremarkable. HEART: Size within normal limits. MEDIASTINUM: No gross evidence of adenopathy. Large hiatal hernia. VASCULATURE: No aortic aneurysm. MUSCULOSKELETAL: No acute osseous abnormalities. Post surgical changes to left ribs. There is incompl ete osseous fusion of the fourth and fifth ribs on the left. SOFT TISSUES/LYMPH NODES: Unremarkable. LOWER NECK: No significant findings. UPPER ABDOMEN: Scattered hepatic probable cyst. IMPRESSION: 1. Enlarging right lower lobe pulmonary nodule now measuring 8 mm, previously 5 mm concerning for ma lignancy. 2. New right upper lung 3 mm nodule also is suspicious. 3. Stable left upper lung consolidation posttreatment morphology. 4. No enlarging lymph nodes identified. 5. Large hiatal hernia.
== END | disposition home or self-care (01) ==
LOC: RADCTMAIN 16:05
PROVIDERS: ATTEND Internal Medicine Hematology & Oncology
DX: C34.12 Malignant neoplasm of upper lobe, left bronchus or lung (principal); R91.1 Solitary pulmonary nodule; K44.9 Diaphragmatic hernia without obstruction or gangrene; J18.1 Lobar pneumonia, unspecified organism; J44.9 Chronic obstructive pulmonary disease, unspecified; B18.2 Chronic viral hepatitis C; F20.0 Paranoid schizophrenia
CPT/HCPCS: 82565; 84520; 71260; 36415; Q9967

== ENCOUNTER 2023-11-18 18:03 | Emergency (ER) | payer OTHER ==
--- NOTE | 2023-11-18 18:24 | ED ---
Upper Extremity HPI - General Source: patient, family, RN notes reviewed Mode of arrival: ambulatory Limitations: no limitations <Gwen Wagoner - Last Filed: 11/18/23 18:24> <Keesha Castillo - Last Filed: 11/20/23 00:23> - General Chief Complaint: Extremity Injury, Upper Stated Complaint: L hand middle finger dismemberment/lac Time Seen by Provider: 11/18/23 18:24 - History of Present Illness Initial Comments: Quick note: 73-year-old male presented to the ER with a chief complaint of left third and fourth digit injury. Patient states he got his hand caught between a trailer and the hitch causing a laceration. Patient reports tetanus is up-to-date. No other injuries or complaints. (Gwen Wagoner) Agree with above (Keesha Castillo) - Related Data Home Medications Medication Instructions Recorded Confirmed diphenhydrAMINE [Benadryl] 25 mg PO BID 06/30/14 01/14/23 Benztropine Mesylate [Cogentin] 1 mg PO DAILY 10/26/18 01/14/23 Finasteride [Proscar] 5 mg PO DAILY 10/26/18 01/14/23 Tamsulosin [Flomax] 0.4 mg PO DAILY 10/26/18 01/14/23 risperiDONE [RisperDAL] 1 mg PO BID 10/26/18 01/14/23 Fluticasone Propion/Salmeterol 1 puff INHALATION RT-BID 07/30/21 01/14/23 [Advair 250-50 Diskus] Omeprazole 40 mg PO DAILY 07/30/21 01/14/23 diazePAM [Valium] 5 mg PO BID 07/30/21 01/14/23 Previous Rx's Medication Instructions Recorded Cephalexin [Keflex] 500 mg PO Q6HR 7 Days #28 cap 11/18/23 Allergies Allergy/AdvReac Type Severity Reaction Status Date / Time No Known Allergies Allergy Verified 11/18/23 18:11 Review of Systems ROS Other: All systems not noted in ROS Statement are negative. <Gwen Wagoner - Last Filed: 11/18/23 18:24> ROS Other: All systems not noted in ROS Statement are negative. <Keesha Castillo - Last Filed: 11/20/23 00:23> ROS Statement: Those systems with pertinent positive or pertinent negative responses have been documented in the HPI. 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 MENTALLY HANDICAPPED-COOPERATIVE History of Any Multi-Drug Resistant Organisms: None Reported Past Surgical History: Adenoidectomy, Tonsillectomy Additional Past Surgical History / Comment(s): hepatitis C Past Anesthesia/Blood Transfusion Reactions: No Reported Reaction Past Psychological History: Schizophrenia Smoking Status: Former smoker Past Alcohol Use History: Daily Past Drug Use History: None Reported - Past Family History Father Family Medical History: Unable to Obtain Additional Family Medical History / Comment(s): PT WAS ADOPTED Mother Family Medical History: Unable to Obtain Additional Family Medical History / Comment(s): PT WAS ADOPTED, <Gwen Wagoner - Last Filed: 11/18/23 18:24> General Exam Limitations: no limitations <Gwen Wagoner - Last Filed: 11/18/23 18:24> General appearance: alert, in no apparent distress Head exam: Present: atraumatic, normocephalic Eye exam: Present: normal appearance, EOMI Neck exam: Present: normal inspection. Absent: meningismus Respiratory exam: Absent: respiratory distress Cardiovascular Exam: Present: regular rate Left Hand Wrist exam: Present: deformity (partial amputation of the distal end of the third and fourth digits) <Keesha Castillo - Last Filed: 11/20/23 00:23> - General Exam Comments Initial Comments: Visual Physical Exam Vital signs reviewed General: Well-appearing, nontoxic, no acute distress. Head: Normocephalic, atraumatic Eyes: PERRLA, EOMI ENT: Airway patent Chest: Nonlabored breathing Skin: No visual rash, normal skin tone Neuro: Alert and oriented 3 Musculoskeletal: No gross abnormalities, significant lacerations to third and fourth left digits. Active bleeding present. Patient has full active range of motion. 2+ left radial pulse. (Gwen Wagoner) Course Vital Signs 11/18/23 19:30 Temperature 97.5 F L Pulse Rate 90 Respiratory 18 Rate Blood Pressure 100/87 O2 Sat by Pulse 92 L Oximetry Procedures - Laceration Laceration #1 Consent Obtained: verbal consent Indication: laceration Site: hand Size (cm): 3 Description: irregular Anesthetic Used: lidocaine 1%, without epi Anesthesia Technique: local infiltration Pre-repair: wound explored, irrigated extensively Type of Sutures: nylon Size of Sutures: 4-0 Number of Sutures: 4 Technique: simple, interrupted <Keesha Castillo - Last Filed: 11/20/23 00:23> Medical Decision Making <Gwen Wagoner - Last Filed: 11/18/23 18:24> <Keesha Castillo - Last Filed: 11/20/23 00:23> - Medical Decision Making I performed the quick note portion of this chart. Electronically signed by Gwen Wagoner PA-C (Gwen Wagoner) Was pt. sent in by a medical professional or institution ([facility] Tristan, LARYNGOLOGIST, urgent care, hospital, or skilled nursing...) When possible be specific @ -No Did you speak to anyone other than the patient for history (EMS, parent, family, police, friend...)? What history was obtained from this source @ -No Did you review nursing and triage notes (agree or disagree)? Why? @ -I reviewed and agree with nursing and triage notes Were old charts reviewed (outside hosp., previous admission, EMS record, old EKG, old radiological studies, urgent care reports/EKG's, skilled nursing records)? Report findings @ -No old charts were reviewed Differential Diagnosis (chest pain, altered mental status, abdominal pain women, abdominal pain men, vaginal bleeding, weakness, fever, dyspnea, syncope, headache, dizziness, GI bleed, back pain, seizure, CVA, palpatations, mental health, musculoskeletal)? @ -Differential includes laceration, fracture, amputation, this is not an all- inclusive list EKG interpreted by me (3pts min.). @ -As above X-rays interpreted by me (1pt min.). @ -X-rays show comminuted fracture distal tuft fourth digit mid diaphysis distal phalanx third digit there is anterior angulation of the distal fracture fragments. Overlying soft tissue injuries present CT interpreted by me (1pt min.). @ -None done U/S interpreted by me (1pt. min.). @ -None done What testing was considered but not performed or refused? (CT, X-rays, U/S, labs)? Why? @ -None What meds were considered but not given or refused? Why? @ -None Did you discuss the management of the patient with other professionals (professionals i.e. , PA, LARYNGOLOGIST, lab, RT, psych nurse, social insurance administrator, president [place], teacher, minesweeping officer, medical case manager)? Give summary @ -I spoke with Dr. Carrero who states that the patient can call the office at 8 AM tomorrow and he will see him in the office tomorrow Was smoking cessation discussed for >3mins.? @ -No Was critical care preformed (if so, how long)? @ -No Were there social determinants of health that impacted care today? How? (Homelessness, low income, unemployed, alcoholism, drug addiction, transportation, low edu. Level, literacy, decrease access to med. care, fdc, rehab)? @ -No Was there de-escalation of care discussed even if they declined (Discuss DNR or withdrawal of care, Hospice)? DNR status @ -No What co-morbidities impacted this encounter? (DM, HTN, Smoking, COPD, CAD, Cancer, CVA, ARF, Chemo, Hep., AIDS, mental health diagnosis, sleep apnea, morbid obesity)? @ -None Was patient admitted / discharged? Hospital course, mention meds given and route, prescriptions, significant lab abnormalities, going to OR and other pertinent info. @ -73-year-old male presenting with chief complaint of injury to the left third and fourth digits. He mangled the fingers on his tractor. There is a partial amputation to the distal ends of the fingers. Comminuted fracture seen on x- rays. His tetanus is up-to-date. He is given Ancef here in the ER. Wounds are irrigated and some sutures are applied to help stabilize the injuries. The wound is wrapped in a bulky dressing and the patient is started on Keflex. Patient is instructed to call the orthopedic office in the morning, his sister who is present states that she will ensure that this occurs. Educated on wound care and signs of infection. Discharged. Follow-up with PCP. Report back to ER with any new or worsening symptoms. Discussed return parameters and answered all questions. Patient conveyed verbal understanding and agreed to the plan. I discussed this case in detail with my attending Dr. Guzman Undiagnosed new problem with uncertain prognosis? @ -No Drug Therapy requiring intensive monitoring for toxicity (Heparin, Nitro, Insulin, Cardizem)? @ -No Were any procedures done? @ -No Diagnosis/symptom? @ -Open fracture of the fingers Acute, or Chronic, or Acute on Chronic? @ -Acute Uncomplicated (without systemic symptoms) or Complicated (systemic symptoms)? @ -Complicated Side effects of treatment? @ -No Exacerbation, Progression, or Severe Exacerbation? @ -No Poses a threat to life or bodily function? How? (Chest pain, [place], MD, pneumonia, PE, COPD, DKA, ARF, appy, cholecystitis, CVA, Diverticulitis, Homicidal, Suici marcial, threat to staff... and all critical care pts) @ -Yes if not properly treated (Keesha Castillo) Disposition <Gwen Wagoner - Last Filed: 11/18/23 18:24> Is patient prescribed a controlled substance at d/c from ED?: No Time of Disposition: 21:17 <Keesha Castillo - Last Filed: 11/20/23 00:23> Clinical Impression: Open fracture of finger Disposition: HOME SELF-CARE Condition: Fair Instructions (If sedation given, give patient instructions): Finger Fracture (ED) Additional Instructions: Follow-up with orthopedics, call the office tomorrow morning at 8 AM. Report back to ER with any new or worsening symptoms. Take medication as prescribed. Take Motrin and Tylenol as needed for pain control. Keep the wound clean dry and covered. Prescriptions: Cephalexin [Keflex] 500 mg PO Q6HR 7 Days #28 cap Referrals: [facility],Clinic [Primary Care Provider] - 1-2 days Jeremy Carrero MD [STAFF PHYSICIAN] - 1-2 days
--- NOTE | 2023-11-18 19:09 | XR ---
EXAMINATION TYPE: XR hand complete LT DATE OF EXAM: 11/18/2023 COMPARISON: None HISTORY: 3 and 4th digit injury TECHNIQUE: 3 view left hand FINDINGS: Comminuted fractures of the tuft of the fourth digit and mid diaphysis distal phalanx third digit is present. There is some anterior angulation of the distal fracture fragments of the third an d fourth digits. Soft tissue injury is at the distal third digit. Remaining portions of the hand appear without fracture, dislocation, or soft tissue injury. IMPRESSION: 1. Comminuted fracture distal tuft fourth digit mid diaphysis distal phalanx third digit. There is a nterior angulation of the distal fracture fragments. Overlying soft tissue injury is present.
[2023-11-18 19:31] VITALS: BP 100/87; PULSE 90; RESP 18; TEMP 97.5
[2023-11-18] MEDS: LIDOCAINE 1% INJ 10MG/ML (20 ML MDV) SQ ONE (19:35)
[2023-11-18] MEDS: ceFAZolin 1,000 MG VIAL (IM USE) IM STA (19:45)
[2023-11-18] MEDS: HYDROmorphone 1 MG/ML 1 ML SYRINGE IM STA (19:52)
[2023-11-18] MEDS: LORazepam 2 MG/ML INJ IM STA (20:25)
== END 2023-11-18 21:35 | disposition home or self-care (01) ==
LOC: EC 18:03
CPT/HCPCS: 12002; 96372; 99283

== ENCOUNTER → 2024-02-22 | Outpatient (CLI) | payer OTHER ==
[2024-02-22 17:01] LABS: African American GFR (CKD) >90 (>60 ml/min/1.73 sqM); Blood Urea Nitrogen 18 mg/dL (9-20); Non-African American GFR(CKD) >90 (>60 ml/min/1.73 sqM)
--- NOTE | 2024-02-22 17:40 | CT ---
EXAMINATION TYPE: CT chest w con DATE OF EXAM: 02/22/2024 5:27 PM COMPARISON: 09/30/2023 CLINICAL INDICATION: Male, 73 years old with history of C34.12 LUNG CA; PHH, Lung CA. TECHNIQUE: Multiple axial images were obtained through the chest. Sagittal and coronal reformats were created for review. MIP was performed on a separate workstation. Contrast used:80 ml mL of Isovue 300 with IV Contrast (None if empty) Oral contrast used: (None if empty) CT DLP: 228.3 mGycm, Automated exposure control for dose reduction was used. FINDINGS: LUNGS/ PLEURA: Similar morphology to the left upper lobe consolidation. Increasing size of right lower lobe pulmonary nodule now measuring 11 x 8 mm, previously measuring 8 x 6 mm sagittal imaging series 7 image 20 Right middle lobe nodule measuring 5 mm previously 3 mm series 3 image 42. Groundglass nodule seen on prior not seen on today's exam. AIRWAY: Patent and unremarkable. HEART: Size within normal limits. MEDIASTINUM: No gross evidence of adenopathy. Large hiatal hernia. VASCULATURE: No aortic aneurysm. MUSCULOSKELETAL: No acute osseous abnormalities. Post surgical changes to left ribs. There is incompl ete osseous fusion of the fourth and fifth ribs on the left. SOFT TISSUES/LYMPH NODES: Unremarkable. LOWER NECK: No significant findings. UPPER ABDOMEN: Scattered hepatic probable cyst. IMPRESSION: 1. Continued Enlarging right lower lobe pulmonary nodule now measuring now measuring 11 x 8 mm previ ously 8 x 6 mm concerning for malignancy. 2. Enlarging right right upper lung 5 mm nodule.. 3. Stable left upper lung consolidation posttreatment morphology. 4. No enlarging lymph nodes identified. 5. Large hiatal hernia. [facility], , 02/22/2024 5:37 PM
== END | disposition home or self-care (01) ==
LOC: RADCTMAIN 16:29
PROVIDERS: ATTEND Internal Medicine Hematology & Oncology
DX: C34.12 Malignant neoplasm of upper lobe, left bronchus or lung (principal); K44.9 Diaphragmatic hernia without obstruction or gangrene; R91.8 Other nonspecific abnormal finding of lung field
CPT/HCPCS: 82565; 84520; 71260; 36415; Q9967

== ENCOUNTER → 2024-05-20 | Outpatient (CLI) | payer OTHER ==
--- NOTE | 2024-05-21 18:42 | PE ---
EXAMINATION TYPE: PET CT fusion skull to thigh DATE OF EXAM: 05/20/2024 CLINICAL INDICATION:Male, 73 years old with history of C34.12 MALIGNANT NEOPLASM OF UPPER LOBE, LEFT BRON; TECHNIQUE: Following the intravenous administration of 11.28 mCi of F-18 FDG, whole body images are performed from the skull base to the Mid thigh. Images are reviewed on the computer in the coronal, axial, and sagittal planes. Reconstructed rotating images are created on independent workstation an d reviewed on the computer. A non-contrast CT is performed in conjunction with the PET scan. Glucos e level 108 mg/dL CT DLP: 211 mGycm, Automated exposure control for dose reduction was used. COMPARISON: CT 02/22/2024, 05/05/2023, PET/CT 10/23/2018, MRI: None FINDINGS: Mediastinal SUV mean is 1.6. Hepatic parenchyma SUV mean is 2.08. SKULL BASE AND NECK: Left anterior hyoid bone max SUV 4.5 . CHEST, MEDIASTINUM, AND HILAR REGION: * Right lower lobe 12 mm nodule can be fractionally larger previously 11 mm the next SUV 6.1. * Right middle lobe 8 mm pulmonary nodule previously 5 mm Max SUV 4.8 * Consolidation changes in the lingula max SUV 2.9, previously in 2019 * SUV 8.6. * Subcarinal lymph node max SUV 4.8 Measures roughly 12 mm in short axis. ABDOMEN AND PELVIS: Indeterminate, Focal uptake in the descending colon wall possibly physiologic max SUV 7.7. MUSCULOSKELETAL STRUCTURES: Right mandible focus of uptake max SUV 7.[address]: Atherosclerosis of the right carotid bifurcation. Rightward deviated nose. Mild coronary ar anatoly atherosclerosis. Moderate to large hiatal hernia. Grade 1 anterolisthesis of L4 on L5. IMPRESSION: 1. Enlarging right middle lobe pulmonary nodule with increased metabolic activity as well as a fract ionally larger right lower lobe pulmonary nodule with increased metabolic activity both concerning fo r malignancy. 2. Indeterminate right mandible and left parotid bone foci of uptake no other sites of osseous metas tatic disease particularly visualized etiology uncertain. 3. Indeterminate focus in the descending colon wall [facility], , 05/21/2024 6:39 PM
== END | disposition home or self-care (01) ==
LOC: RADPETMAIN 13:54
PROVIDERS: ATTEND Internal Medicine Hematology & Oncology
DX: C34.12 Malignant neoplasm of upper lobe, left bronchus or lung (principal); R91.1 Solitary pulmonary nodule; K44.9 Diaphragmatic hernia without obstruction or gangrene; I25.10 Atherosclerotic heart disease of native coronary artery without angina pectoris
CPT/HCPCS: 78815; A9552

== ENCOUNTER 2024-06-16 13:11 | Day surgery (SDC) | payer OTHER ==
[2024-06-16] MEDS ORDERED: HYDROmorphone 0.5 MG/0.5 ML SYRINGE IVP PRN ×2 (13:12)
[2024-06-16] MEDS ORDERED: LACTATED RINGERS 1,000 ML IV SCH ×2 (13:12)
[2024-06-16] MEDS ORDERED: LIDOCAINE 1% (10MG/ML) FOR IV START INTRADERMA PRN (13:12)
[2024-06-16] MEDS: LACTATED RINGERS 1,000 ML IV ONE (13:41)
[2024-06-16] MEDS: LACTATED RINGERS 1,000 ML IV SCH (13:48)
[2024-06-16] MEDS: DEXAMETHASONE SOD PHOSPHATE 4 MG/ML 1 ML VIAL IV ONE (13:49)
[2024-06-16] MEDS: ONDANSETRON 4 MG/2 ML VIAL IVP PRN (13:50)
--- NOTE | 2024-06-16 13:59 | CT ---
EXAMINATION TYPE: CT Chest wo ION protocol DATE OF EXAM: 06/16/2024 COMPARISON: Chest abdomen and pelvis dated 05/05/2023 CLINICAL INDICATION: Male, 73 years old with history of bronch w/ ion robot; PHH, PRE BRONCHIAL NAVIG ATION TECHNIQUE: CT scan of the thorax is performed without IV contrast. CT DLP: [address] CTDI: mGy Automated exposure control for dose reduction was used. FINDINGS: The consolidation in the left upper lobe extending from the hilum to the pleural surface is increased in AP dimension from 3.1 cm to approximately 3.9 cm and is suspicious for recurrent neoplasm. There is a new 9.6 mm right middle lobe pulmonary nodule/mass. The 4 mm nodule in the right lower lobe has grown to 16.3 mm. There is a stable large hiatal hernia. Technique is limited for evaluation of adenopathy but no definite mediastinal adenopathy seen. Limite d scanning through the upper abdomen reveals no gross abnormality. There are no focal osseous lesions . IMPRESSION: 1. Increasing consolidation/mass in the left upper lobe. 2. Increasing right lower lobe pulmonary nodule from 4 mm to 16.3 mm. 3. New 9.6 mm nodule right middle lobe and measures 4. Findings indicating worsening of lung neoplasm with metastatic disease. [facility], , 06/16/2024 1:56 PM
[2024-06-16] MEDS ORDERED: NEOSTIGMINE 1 MG/ML 10 ML VIAL ONE (14:06)
[2024-06-16] MEDS ORDERED: GLYCOPYRROLATE 0.2 MG/ML 2 ML VIAL ONE (14:06)
[2024-06-16] MEDS ORDERED: ePHEDrine 50 MG/ML 1 ML VIAL ONE (14:06)
[2024-06-16] MEDS ORDERED: PROPOFOL 10 MG/ML 20 ML VIAL IV ONE (14:06)
[2024-06-16] MEDS ORDERED: SUCCINYLCHOLINE CHLORIDE 200 MG/10 ML VIAL IV ONE (14:06)
[2024-06-16] MEDS ORDERED: LIDOCAINE 1% INJ 10MG/ML (20 ML MDV) ONE (14:06)
[2024-06-16] MEDS ORDERED: ROCURONIUM 10 MG/ML (5 ML VIAL) IV ONE (14:06)
--- NOTE | 2024-06-16 15:29 | P.PCN ---
Date of Procedure: 06/16/24 Operative Findings: Preoperative Diagnosis: Right lower lobe pulmonary nodule, 12mm, SUV 6.1 Right middle lobe pulmonary nodule, 8mm, SUV 4.8 Subcarinal adenopathy, 12 mm, SUV 4.8 Previous NSCLC (adnosquamous) left upper lobe, post chemoradiation therapy 2019 Postoperative Diagnosis: Same Procedure(s) Performed: Flexible bronchoscopy Robotic-assisted bronchoscopy and addition to radial ultrasound evaluation of the right lower lobe pulmonary pulmonary nodule Robotic-assisted transbronchial needle aspirate, transbronchial biopsies of the right lower lobe pulmonary nodule Endobronchial ultrasound Transbronchial needle aspirate the subcarinal station 7 lymph node Anesthesia: VANDANAA Surgeon: Maxx Amador Estimated Blood Loss (ml): 0 Pathology: other Condition: stable Disposition: same day Operative Findings: A physical exam was performed. Informed consent was obtained from the patient after explaining all the risks (pneumothorax, life threatening bleeding, infection and adverse effects due to medications), benefits and alternatives to the procedure which the patient appeared to understand and so stated. The patient was connected to the monitoring devices. General anesthesia was induced and the patient was intubated by anesthesia. A final timeout was performed and the procedure confirmed by the attending staff bronchoscopist. The bronchoscope was inserted and the airway examined. Examination was essentially within normal limits. No significant abnormalities noted. The flexible bronchoscope was removed and the robotic bronchoscope was inserted. Registration was completed. I next guided the robotic bronchoscope using the navigation system into the right lower lobe lataeral segment. Once in proper position, the bronchoscope was frozen. The radial EBUS probe was placed through the bronchoscope and confirmed abnormal u/s images vs normal lung. A needle was placed through the working channel and under fluoroscopic guidance, we sampled the area thought to have the mass twice. Rapid onsite evaluation of the samples was done by pathology and the samples were adequate. We then used a cloud biopsy pattern with ultrasound confirmation for 2 additional passes with the needle. U/S evaluation was then used to reconfirm location. Forceps were next introduced through working channel and extended the appropriate distance and 3 transbronchial biopsies were performed using fluoroscopic guidance. The u/s probe was then reinserted to confirm location. When confirmed this process was repeated for a total of 6 transbronchial biopsies. The robotic catheter was removed. Endobronchial percent was inserted. Careful evaluation of the mediastinal stations showed a 2 cm subcarinal lymph node, station 7. Using a 22-gauge needle, transbronchial needle aspirate of the subcarinal lymph node was done with a total of 4 passes was taken. No bleeding. No complications. The patient was extubated and the patient was transferred to recovery in stable condition. FINDINGS: 1.The airways appeared normal 2 Successful navigation, ultrasonographic identification, and biopsies of right lower lobe pulmonary pulmonary nodule 3.The the radial ultrasound view was concentric 4 transbronchial needle aspirate of subcarinal lymph node RECOMMENDATIONS: Await pathology and cytology results The referring physician will be alerted to the results when available. The patient was advised to follow up with the referring physician with the biopsy results Patient will be called with results.
--- NOTE | 2024-06-16 15:36 | FL ---
Fluoroscopy INDICATION: Bronchoscopy FINDINGS: Fluoroscopy time: 61 seconds. Total dose area product (DAP) in uGy*m?, mGy*cm? (or similar): 0.8415 Images obtained: 3. Images document bronchoscopy IMPRESSION: 1. Documentation of fluoroscopy. [facility], , 06/16/2024 3:34 PM
[2024-06-16 15:49] VITALS: RESP 16; TEMP 97.4
--- NOTE | 2024-06-16 16:05 | XR ---
EXAMINATION TYPE: XR chest 1V DATE OF EXAM: 06/16/2024 CLINICAL INDICATION: Male, 73 years old with history of post bx, TECHNIQUE: Single frontal view of the chest is obtained. COMPARISON: Chest CT earlier today FINDINGS: There is no pneumothorax after right-sided biopsy. Persistent background chronic emphysematous change with left suprahilar masslike consolidation and ri ght lower lung nodule. Mild Cardiomegaly with moderate size hiatal hernia redemonstrated. Osseous str uctures are intact. Persistent left-sided tracheal shift. IMPRESSION: As above. [facility], , 06/16/2024 4:03 PM
[2024-06-16 16:32] VITALS: BP 97/56; PULSE 87
== END 2024-06-16 16:40 | disposition home or self-care (01) ==
LOC: ORWHC2ENDO 13:11
PROVIDERS: ATTEND Internal Medicine Critical Care Medicine
DX: C34.31 Malignant neoplasm of lower lobe, right bronchus or lung (principal); R59.0 Localized enlarged lymph nodes; J44.9 Chronic obstructive pulmonary disease, unspecified; E78.5 Hyperlipidemia, unspecified; B18.2 Chronic viral hepatitis C; K21.9 Gastro-esophageal reflux disease without esophagitis; K44.9 Diaphragmatic hernia without obstruction or gangrene; I51.7 Cardiomegaly; Z79.1 Long term (current) use of non-steroidal anti-inflammatories (NSAID); Z79.51 Long term (current) use of inhaled steroids; Z79.899 Other long term (current) drug therapy; Z87.891 Personal history of nicotine dependence; Z85.118 Personal history of other malignant neoplasm of bronchus and lung; Z92.21 Personal history of antineoplastic chemotherapy; Z92.3 Personal history of irradiation
CPT/HCPCS: 31628; 31629; 31627; 31652; 31654; 88305; 88342; 88341; 71045; 71250; J0330; J1100; J2710; J2405; J2003; J2704; J1596; S2900